=== PATIENT | female | born 1975 | race Caucasian/White ===

== ENCOUNTER 2021-10-17 10:39 | Emergency (ER) | payer OTHER, SELFPAY ==
[2021-10-17 10:59] VITALS: BP 121/77; PULSE 84; RESP 18; TEMP 37.8; O2SAT 100
--- NOTE | 2021-10-17 11:54 | ED.URI ---
HPI - URI/Sore Throat General Chief Complaint: Upper Respiratory Infection Stated Complaint: Sinus Time Seen by Provider: 10/17/21 11:54 Source: patient and RN notes reviewed Mode of arrival: ambulatory Limitations: no limitations History of Present Illness HPI Narrative: 46-year-old female presents with concern for sore throat, sinus pain and pressure, postnasal drainage, swollen lymph nodes, sinus burning that started on Sunday. Reports she has not been vaccinated for Covid. She took 1 negative Covid rapid test at home yesterday. She denies known sick contacts. MD elicited complaint: sore throat Related Data Allergies Allergy/AdvReac Type Severity Reaction Status Date / Time No Known Allergies Allergy Verified 10/17/21 11:06 Review of Systems Review of Systems: CONSTITUTIONAL: Reports malaise. Denies chills, sweats, or fever. EYES: Denies visual changes, redness, or discharge. ENT: Reports rhinorrhea, congestion, sinus pain, ear pressure and sore throat. CARDIOVASCULAR: Denies chest pain, palpitations, or edema. RESPIRATORY: Reports occasional cough. Denies dyspnea. GASTROINTESTINAL: Denies abdominal pain, nausea, vomiting, diarrhea SKIN: Denies rash or itching. MUSCULOSKELETAL: Denies myalgia. NEUROLOGIC: Reports headache. All systems reviewed & are unremarkable except as noted in HPI and below PMFSH Comments At time of signature, agree with nursing past medical, surgical, social and family history. There is no relevant family history pertinent to the presenting complaint Exam Narrative: GENERAL: Well-appearing, well-nourished, and in no acute distress. HEAD: Normocephalic EYES: PERRLA, conjunctivae clear ENT: Nares clear, turbinates edematous and erythematous, clear discharge. Mucous membranes moist. TM pearly nunn with dull light reflex bilaterally; no tragal tenderness. Oropharynx erythematous without lesions. Tonsils not enlarged and without exudate, no drooling, no hoarseness, no trismus, uvula midline. NECK: Supple. No lymphadenopathy CHEST: Clear to auscultation, breath sounds equal. No wheezing, rhonchi, rales, or stridor. No respiratory distress, speaks in full sentences. HEART: Regular rate and rhythm. No murmur heard. SKIN: Warm, dry, no rash. NEURO: Alert and oriented x3. PSYCH: Normal mood and affect Course Course Emergency Course: Patient is aware of diagnosis, understands and agrees to treatment plan. Anticipatory guidance given. Patient agrees to follow-up as directed and is aware of reasons to seek care at the emergency department. Portions of this record may have been created with voice recognition software Vital Signs Vital signs: Vital Signs Temperature 100.1 F H 10/17/21 10:59 Pulse Rate 84 10/17/21 10:59 Respiratory Rate 18 10/17/21 10:59 Blood Pressure 121/77 10/17/21 10:59 Pulse Oximetry 100 10/17/21 10:59 Temperature 100.1 F H 10/17/21 10:59 Pulse Rate 84 10/17/21 10:59 Respiratory Rate 18 10/17/21 10:59 Blood Pressure 121/77 10/17/21 10:59 Pulse Oximetry 100 10/17/21 10:59 Reviewed. MDM - URI/Sore Throat MDM Narrative Medical decision making narrative: Differential diagnosis considered: Blue virus, strep pharyngitis, allergic rhinitis, upper respiratory tract infection, sinusitis, rhinosinusitis, nasopharyngitis. viral pharyngitis, otitis media, otitis externa, pneumonia, bronchitis, viral cough syndrome, viral syndrome, and influenza. Exam findings show no acute concerns or changes; patient is non-toxic appearing and is in no distress. Patient is appropriate for outpatient treatment and follow-up. Lab Data Attestation: I reviewed the patient's lab results. Labs: Influenza A Screen Negative Reference Range: Negative Influenza B Screen Negative Reference Range: Negative Strep Screen Presumptive Negative
== END 2021-10-17 12:15 | disposition home or self-care (01) ==
PROVIDERS: Emergency Provider Nurse Practitioner; PCP Internal Medicine
DX: J06.9 Acute upper respiratory infection, unspecified (principal); Z20.822 Contact with and (suspected) exposure to COVID-19
CPT/HCPCS: 87081; 87426; 87804; 87880; 99213; C9803; G0463

== ENCOUNTER 2021-11-20 12:36 | Emergency (ER) | payer OTHER, SELFPAY ==
[2021-11-20 12:49] VITALS: BP 124/76; PULSE 99; RESP 16; TEMP 36.3; O2SAT 99
--- NOTE | 2021-11-20 14:40 | ED.URI ---
HPI - URI/Sore Throat General Chief Complaint: Upper Respiratory Infection Stated Complaint: fever chest tighness / congestion Time Seen by Provider: 11/20/21 14:40 Source: patient, RN notes reviewed and old records reviewed Mode of arrival: ambulatory Limitations: no limitations History of Present Illness HPI Narrative: 46-year-old female who presents to [facility] with complaints of fever, cough with some chest tightness, nasal drainage and congestion which started on Sunday. Patient states that she noted some shortness of breath with activity on . Patient reports that she has not had COVID of Flu vaccinations and states history of bronchitis. Patient has not taken any OTC medications for her symptoms. Patient has even and nonlabored respirations, no tachypnea noted SAO2 99% on room air. MD elicited complaint: fever, cough, rhinorrhea, nasal congestion and other (chest tightness with cough) Related Data Allergies Allergy/AdvReac Type Severity Reaction Status Date / Time No Known Allergies Allergy Verified 10/17/21 11:06 Review of Systems Review of Systems: CONSTITUTIONAL: Positive for fever,no reported chills, or sweats. EYES: Denies visual changes, redness, or discharge. ENT: Positive for rhinorrhea, congestion,no sore throat, or otalgia. CARDIOVASCULAR:Positive for chest tightness with cough, no palpitations, or edema, no radiation of pain or nausea. RESPIRATORY: Positive cough or dyspnea. GASTROINTESTINAL: Denies abdominal pain, nausea, vomiting, or diarrhea. GENITOURINARY: Denies dysuria or hematuria. SKIN: Denies rash or itching. MUSCULOSKELETAL: Denies back pain, joint pain, or myalgia. NEUROLOGIC: Denies headache, numbness, or weakness. PSYCHIATRIC: Denies anxiety or depression. All systems reviewed & are unremarkable except as noted in HPI and below PMFSH Past Medical History Medical History (Updated 11/21/21 @ 17:22 by Smiley Villafana NP) Bronchitis Surgical History Surgical History (Updated 11/21/21 @ 17:23 by Smilye Villafana NP) H/O breast biopsy H/O dilation and curettage Social History Social History (Updated 11/21/21 @ 17:27 by Smiley Villafana NP) Smoking status: Never smoker Alcohol intake: current Alcohol use details: social Substance use: never Living arrangements: with family Gender identity (if verbalized by the patient): Female Comments My comments Exam Narrative: GENERAL: Illl-appearing, well-nourished, and in no acute distress. HEAD: Normocephalic, atraumatic. EYES: PERRLA and EOMI. ENT: Nares patent with clear rhinorrhea no epistaxis. Mucous membranes moist.TM's normal with good light reflex, throat pink with no lesions or exudates, no tonsil enlargement some post nasal drainage. NECK: Supple.no lymphadenopathy CHEST: Clear to auscultation. No respiratory distress.dry cough noted SAO2 99% on room air HEART: Regular rate and rhythm. No murmur heard. Normal peripheral pulses. chest tightness with cough ABDOMEN: Soft, nontender, nondistended, normal active bowel sounds. EXTREMITIES: Normal range of motion. No edema. SKIN: Warm, dry, no rash. NEURO: No focal deficits. Alert and oriented x3. Course Course Level of Care: Express Care Visit Vital Signs Vital signs: Vital Signs Temperature 36.3 C L 11/20/21 12:49 Pulse Rate 99 11/20/21 12:49 Respiratory Rate 16 11/20/21 12:49 Blood Pressure 124/76 11/20/21 12:49 Pulse Oximetry 99 11/20/21 12:49 Temperature 36.3 C L 11/20/21 12:49 Pulse Rate 99 11/20/21 12:49 Respiratory Rate 16 11/20/21 12:49 Blood Pressure 124/76 11/20/21 12:49 Pulse Oximetry 99 11/20/21 12:49 MDM - URI/Sore Throat Differential Diagnosis Differential diagnosis: Likely upper respiratory infection, sinusitis, viral infection, bronchitis and other (COVID) Medical Records Attestation: I reviewed the patient's medical records. Lab Data Attestation: I reviewed the patient's lab results. Lab result
== END 2021-11-20 15:00 | disposition home or self-care (01) ==
PROVIDERS: Emergency Provider Registered Nurse; PCP Internal Medicine
DX: U07.1 COVID-19 (principal)
CPT/HCPCS: 87426; 87804; 99213; C9803; G0463

== ENCOUNTER 2021-11-27 09:13 | Emergency (ER) | payer OTHER, SELFPAY ==
--- NOTE | ~2021-11-27 | XR_ITS ---
EXAMINATION: XR chest 2V 11/27/2021 09:49 INDICATION: Post Covid cough PROCEDURE: 2 view chest COMPARISON: No prior studies for comparison. FINDINGS: The lungs are clear. The cardiomediastinal silhouette is within normal limits. There are no pleural effusions. There is no pneumothorax suspected. IMPRESSION: 1: NO ACUTE CARDIOPULMONARY DISEASE. Reviewed, dictated and finalized at location [employer]
[2021-11-27 09:29] VITALS: BP 134/74; PULSE 95; RESP 16; TEMP 37.4; O2SAT 99
--- NOTE | 2021-11-27 10:08 | ED.URI ---
HPI - URI/Sore Throat General Chief Complaint: Upper Respiratory Infection Stated Complaint: cough Time Seen by Provider: 11/27/21 09:58 Source: patient and RN notes reviewed Mode of arrival: ambulatory Limitations: no limitations History of Present Illness HPI Narrative: Patient presents today complaining of coughing episode with shortness of breath last night. Cough has been nonproductive with a dry scratchy throat. Patient was diagnosed 1 week ago with COVID-19 here at [facility]. She is also been taking Mucinex and Tylenol. States she had a fever last night up to 99.9. She has not been vaccinated against COVID-19. MD elicited complaint: cough Related Data Allergies Allergy/AdvReac Type Severity Reaction Status Date / Time No Known Allergies Allergy Verified 11/27/21 09:47 Review of Systems Review of Systems: CONSTITUTIONAL: Denies body aches, fever, chills, or sweats. EYES: Denies visual changes, redness, or discharge. ENT: Denies rhinorrhea, congestion, sore throat, or otalgia.+ Scratchy throat CARDIOVASCULAR: Denies chest pain, palpitations, or edema. RESPIRATORY:+ Cough, shortness of breath GASTROINTESTINAL: Denies abdominal pain, nausea, vomiting, or diarrhea. GENITOURINARY: Denies dysuria or hematuria. SKIN: Denies rash, itching, or wounds. MUSCULOSKELETAL: Denies back pain, joint pain, or myalgia. NEUROLOGIC: Denies headache, numbness, tingling, or weakness. PSYCH: Denies depression or anxiety. PMFSH Past Medical History Medical History Bronchitis Surgical History Surgical History H/O breast biopsy H/O dilation and curettage Social History Social History Smoking status: Never smoker Alcohol intake: current Alcohol use details: social Substance use: never Gender identity (if verbalized by the patient): Female Comments At time of signature, I have reviewed and agree with nursing past medical, surgical, social and family history unless otherwise noted. Please see nursing chart for further information. There is no relevant family history pertinent to the presenting complaint Exam Narrative: GENERAL: Well-appearing, well-nourished, and in no acute distress. HEAD: Normocephalic, atraumatic. EYES: EOMI. No redness or drainage. Conjunctivae normal. ENT: Mucous membranes pink and moist. Nares clear. No rhinorrhea. TMs normal bilaterally. Throat normal. Uvula midline. NECK: Normal AROM. Supple. No lymphadenopathy. CHEST: No respiratory distress. Clear to auscultation. HEART: Regular rate and rhythm. No murmur appreciated. Normal peripheral pulses. EXTREMITIES: Normal range of motion. No edema. SKIN: Warm, dry, no rash. Capillary refill normal. Normal skin turgor. NEURO: No focal deficits. Alert and oriented x3. Gait steady. PSYCH: Normal affect. No signs of depression or anxiety. Course Course Level of Care: Express Care Visit Vital Signs Vital signs: Vital Signs Temperature 99.3 F 11/27/21 09:29 Pulse Rate 95 11/27/21 09:29 Respiratory Rate 16 11/27/21 09:29 Blood Pressure 134/74 11/27/21 09:29 Pulse Oximetry 99 11/27/21 09:29 Temperature 99.3 F 11/27/21 09:29 Pulse Rate 95 11/27/21 09:29 Respiratory Rate 16 11/27/21 09:29 Blood Pressure 134/74 11/27/21 09:29 Pulse Oximetry 99 11/27/21 09:29 Reviewed. Pt has been instructed to follow up with her PCP regarding her elevated blood pressure today. MDM - URI/Sore Throat Differential Diagnosis Differential diagnosis: Likely upper respiratory infection, bronchitis and other (Pneumonia) Imaging Data Radiologist's impression: ITS Impressions Chest X-Ray 11/27/21 09:53 IMPRESSION: 1: NO ACUTE CARDIOPULMONARY DISEASE. Critical Care Time Critical Care Time Critical Care Time: No Disch
== END 2021-11-27 10:15 | disposition home or self-care (01) ==
PROVIDERS: Emergency Provider Nurse Practitioner; PCP Internal Medicine
DX: U07.1 COVID-19 (principal)
CPT/HCPCS: 71046; 99213; G0463

== ENCOUNTER 2022-05-19 09:28 | Emergency (ER) | payer OTHER, SELFPAY ==
[2022-05-19 09:32] VITALS: BP 134/74; PULSE 62; RESP 18; TEMP 37; O2SAT 99
--- NOTE | 2022-05-19 09:35 | ED.URI ---
HPI - URI/Sore Throat General Chief Complaint: Upper Respiratory Infection Stated Complaint: cough and congestion Time Seen by Provider: 05/19/22 09:29 Source: patient and RN notes reviewed History of Present Illness HPI Narrative: Patient is a 47-year-old female who presents the urgent care with complaints of cough and congestion. Patient reports of dry cough with tightness upon lying down. Patient states is been ongoing for the last 2 weeks. Patient has been taking Remedios and Sudafed. Denies any ill contacts. States that she did have an COVID test last week. Denies a fever, chills, nausea or vomiting. No other acute complaints. No acute distress noted. Patient aware of the plan of care. Some parts of this dictation were generated by voice recognition software and may contain typographical and/or grammatical inaccuracies. Related Data Home Medications Medication Instructions Recorded Confirmed fexofenadine 60 mg tablet (Remedios mg 05/19/22 Allergy) Allergies Allergy/AdvReac Type Severity Reaction Status Date / Time No Known Allergies Allergy Verified 11/27/21 09:47 Review of Systems Review of Systems: CONSTITUTIONAL: Denies fever, chills, or sweats. EYES: Denies visual changes, redness, or discharge. ENT: Reports of ear pressure, sinus congestion, postnasal drainage CARDIOVASCULAR: Denies chest pain, palpitations, or edema. RESPIRATORY: Reports of dry cough without dyspnea GASTROINTESTINAL: Denies abdominal pain, nausea, vomiting, or diarrhea. GENITOURINARY: Denies dysuria or hematuria. SKIN: Denies rash or itching. MUSCULOSKELETAL: Denies back pain, joint pain, or myalgia. NEUROLOGIC: Denies headache, numbness, or weakness. All other systems reviewed are negative, except as documented in HPI. [facility], [facility] Past Medical History Medical History Bronchitis Surgical History Surgical History H/O breast biopsy H/O dilation and curettage Social History Social History Smoking status: Never smoker Alcohol intake: current Alcohol use details: social Substance use: never Gender identity (if verbalized by the patient): Female Comments At the time of my signature, I reviewed and agree with the nursing past medical, surgical, social, and family history. There is no relevant family history pertinent to the patient complaint. Exam Narrative: GENERAL: This is a well-nourished, well-developed patient, in no apparent distress. HEAD: normocephalic, atraumatic. Frontal sinus tenderness EYES: PERRL. Sclera clear/white. Vision is grossly intact. EARS: External ears normal, auditory canals clear and without drainage, mild bilateral effusions without otitis. TMs normal without perforation. Hearing grossly intact. NOSE: External nose normal with no obvious nasal discharge, nares without redness, there to yellow rhinorrhea THROAT: Mucous membranes moist, posterior pharynx clear. Moderate postnasal drainage NECK: Neck supple, non-tender without lymphadenopathy, masses or thyromegaly. CARDIOVASCULAR: Regular rate and rhythm without murmurs, gallops, or rubs. RESPIRATORY: Dry cough noted on exam with slight crackles to the right upper, cleared with cough. Clear to auscultation. Breath sounds equal bilaterally. No wheezes, rales, or rhonchi. SKIN: warm, intact with no suspicious lesions or rash, good texture and turgor. NEURO: awake, alert, and oriented to person, place and time. There were no obvious focal neurologic abnormalities. EXTREMITIES: No clubbing, cyanosis, or edema. Course Course Level of Care: Express Care Visit Vital Signs Vital signs: Vital Signs Temperature 98.6 F 05/19/22 09:32 Pulse Rate 62 05/19/22 09:32 Respiratory Rate 18 05/19/22 09:32 Blood Pressure 134/74 05/19/22 09:32 Pulse Oximetry 99
== END 2022-05-19 10:03 | disposition home or self-care (01) ==
PROVIDERS: Emergency Provider Nurse Practitioner Family; PCP Internal Medicine
DX: J40 Bronchitis, not specified as acute or chronic (principal)
CPT/HCPCS: 99213; G0463

== ENCOUNTER 2023-07-09 18:47 | Emergency (ER) | payer OTHER, SELFPAY ==
[2023-07-09 18:54] VITALS: BP 137/76; PULSE 90; RESP 20; TEMP 36.5; O2SAT 100
--- NOTE | 2023-07-09 19:05 | ED.SKABFB ---
HPI - Skin/Abscess/Foreign Bdy General Chief complaint: Skin/Abscess/Foreign Body Stated complaint: sting on right thigh Time Seen by Provider: 07/09/23 19:04 Source: patient and RN notes reviewed Mode of arrival: ambulatory Limitations: no limitations History of Present Illness HPI narrative: 48-year-old female presents with concern for wasp sting to her right thigh. Reports she was stung by a wasp yesterday. Reports she has taken Benadryl. Reports today the center of the red raised area has become so hard and tender. She denies swollen lips, swollen tongue, trouble breathing. MD complaint: insect bite/sting Related Data Allergies Allergy/AdvReac Type Severity Reaction Status Date / Time No Known Allergies Allergy Verified 11/27/21 09:47 Review of Systems Review of Systems: CONSTITUTIONAL: Denies malaise, chills, sweats, or fever. EYES: Denies redness, or discharge. ENT: Denies rhinorrhea, congestion, swollen lips, swollen tongue CARDIOVASCULAR: Denies chest pain, palpitations, or edema. RESPIRATORY: Denies cough or dyspnea. GASTROINTESTINAL: Denies abdominal pain, nausea, vomiting SKIN: Reports red swollen sting site on her left thigh with heart tender area MUSCULOSKELETAL: Denies joint pain or myalgia. NEUROLOGIC: Denies headache. All systems reviewed & are unremarkable except as noted in HPI and below PMFSH Past Medical History Medical History Bronchitis Surgical History Surgical History H/O breast biopsy H/O dilation and curettage Social History Social History Smoking status: Never smoker Alcohol intake: current Alcohol use details: social Substance use: never Living arrangements: with family Gender identity (if verbalized by the patient): Female Comments At time of signature, agree with nursing past medical, surgical, social and family history. There is no relevant family history pertinent to the presenting complaint Exam Narrative: GENERAL: Well-appearing, well-nourished, and in no acute distress. HEAD: Normocephalic, atraumatic. EYES: PERRLA, conjunctivae clear, and EOMI. ENT: Mucous membranes moist. Oropharynx without edema, erythema or lesions. NECK: Supple. No lymphadenopathy CHEST: Clear to auscultation. No respiratory distress. HEART: Regular rate and rhythm. SKIN: Warm, dry. Approximately 25 cm slightly raise area diameter of erythema noted to the right thigh with approximately 10 cm of induration and tenderness without fluctuation NEURO: Alert and oriented x3. PSYCH: Normal mood and affect Course Course Emergency Course: Patient is aware of diagnosis, understands and agrees to treatment plan. Anticipatory guidance given. Patient agrees to follow-up as directed and is aware of reasons to seek care at the emergency department. Portions of this record may have been created with voice recognition software Level of Care: Express Care Visit Vital Signs Vital signs: Vital Signs Temperature 97.7 F 07/09/23 18:54 Pulse Rate 90 07/09/23 18:54 Respiratory Rate 20 07/09/23 18:54 Blood Pressure 137/76 07/09/23 18:54 Pulse Oximetry 100 07/09/23 18:54 Oxygen Delivery Room Air 07/09/23 18:54 Temperature 97.7 F 07/09/23 18:54 Pulse Rate 90 07/09/23 18:54 Respiratory Rate 20 07/09/23 18:54 Blood Pressure 137/76 07/09/23 18:54 Pulse Oximetry 100 07/09/23 18:54 Oxygen Delivery Room Air 07/09/23 18:54 Reviewed. MDM - Skin/Abscess/Foreign Bdy MDM Narrative Medical decision making narrative: Does not appear at this time to be erythema multiforme, bullous, SJS, TEN; no evidence at this time to suggest RMSF, endocarditis or Lyme disease; patient looks well, nontoxic and is tolerating oral intake; no neurologic signs or symptoms; no headache, photophobi
== END 2023-07-09 19:18 | disposition home or self-care (01) ==
PROVIDERS: Emergency Provider Nurse Practitioner
DX: L03.115 Cellulitis of right lower limb (principal); T63.461A Toxic effect of venom of wasps, accidental (unintentional), initial encounter
CPT/HCPCS: 99213; G0463

== ENCOUNTER 2024-03-31 00:31 | Day surgery (SDC) | payer OTHER, SELFPAY ==
[2024-03-24 14:40] VITALS: BMI 31.6
--- NOTE | 2024-03-24 14:41 | PC.NURSE ---
Addendum entered by Miguel Carlisle RN 03/25/24 12:58: Stop all vitamins and fish oil on 03-28-2024. Original Note: Report to the Outpatient Waiting Room, entrance under the green pavilion located off [facility], at time _1000_ on date _[id number]_. Planned Procedure Time: _1200_. Time changes happen often and if your time is changed the preop area will call you the afternoon before. - You and your visitor will be asked to self-screen and do not enter if you have any COVID symptoms. - A mask is optional within the hospital at this time. Patients may have clear liquids (water, carbonated beverages, clear teas, apple juice) until 3 hours prior to surgery with a maximum of 20 ounces. - No food from midnight until time of surgery Take the following medications with a SIP of water the morning of surgery: DO NOT STOP ANY OF YOUR OTHER PRESCRIPTION MEDICATIONS PRIOR TO SURGERY ?EXCEPT THE FOLLOWING Medications to discontinue per physician Date to take last dose Please no make-up, nail mongolian, hairspray, perfume, deodorant, or body powder the day of surgery. No jewelry (including any body piercings) or valuables the day of surgery, leave them at home. Please take a shower or bath the night before, or the morning of, surgery with an antibacterial soap. Wear comfortable, loose fitting clothing. - Jewelry must be removed prior to entering the operating room. Rings and piercings that are not removed may be cut off. - The hospital will not accept responsibility for valuables. - Please leave all valuables, including medications, at home the day of surgery. If you are going home after surgery, a licensed limb driver must drive you home. - NO public transportation without another adult if you receive anesthesia. - We recommend that an adult stay with you for 24 hours following discharge. - We also recommend that you do not drive, make important decision, drink alcoholic beverages, or take any drugs that were not prescribed by your health care provider for at least 24 hours after your discharge time. Follow any additional instructions given to you from your surgeon. If you or anyone in your household have experienced Covid symptoms in the past week, please notify your surgeon or the nurse liaison at the phone number below for possible testing. Telephone instructions given to __Dahlia___and asked if any additional questions and then verbalized understanding. Patient advised to call surgeon office or pre surgery nurse liaison [phone] if any additional questions.
--- NOTE | 2024-03-31 07:25 | WPDHPUPDATE1 ---
History and Physical Update Update Date/Time: 03/31/24 07:25 History and Physical has been reviewed, including an updated exam of the patient. There are NO changes in the patient's condition. Risks, benefits, and alternatives have been discussed and questions answered. Patient agrees to proceed with procedure.
--- NOTE | 2024-03-31 07:26 | P.HP_ITS ---
History of Present Illness History of Present Illness Consent: Risks, benefits, and alternatives have been discussed and questions answered. Patient agrees to proceed with procedure. Chief complaint: menorrhagia, fibroids Narrative: Martina James is a 49 year old female with a change in her cycles. They have become more irregular but also heavy. She was passing golf ball size clots. Pelvic ultrasound reveals fibroids some of which are submucosal. It was recommended to undergo D&C hysteroscopy with possible myomectomy. Risks of infection, bleeding, perforation, and possible pathology were reviewed. In addition the risk of fluid imbalance and inability to remove the entire fibroid were discussed. Patient voices understanding and agrees to proceed. Review of Systems Review of Systems: not repeated day of surgery; patient states no changes in status PMFSH Past Medical History Medical History (Updated 03/31/24 @ 07:29 by Mariaelena Magallon MD) (normal spontaneous vaginal delivery) x3 Surgical History Surgical History (Updated 03/31/24 @ 07:28 by Mariaelena Magallon MD) H/O breast biopsy Bilateral benign H/O dilation and curettage 1996 for spontaneous Social History Social History Smoking status: Never smoker Alcohol intake: current Alcohol use details: social Substance use: never Living arrangements: with family Gender identity (if verbalized by the patient): Female Spiritual care concerns: No Meds Home Medications and Allergies Home Medications Medication Instructions Recorded Confirmed Type escitalopram oxalate 5 mg tablet 5 mg PO HS 03/24/24 03/24/24 History multivitamin 1 tablet PO DAILY 03/24/24 03/24/24 History omega 2-hqn-zgu-fish oil 1,200 mg 1 cap PO DAILY 03/24/24 03/24/24 History (144 mg-216 mg) capsule (Fish Oil) vitamin C 90 mg-zinc gluconate 15 1 angie PO DAILY 03/24/24 03/24/24 History mg-herbal complex no. 325 lozenges Allergies Allergy/AdvReac Type Severity Reaction Status Date / Time No Known Allergies Allergy Verified 03/24/24 14:31 Exam Const: General: healthy appearing and alert Orientation/consciousness: patient oriented x3 Resp: Effort & Inspection: normal respiratory effort : External Female Exam: normal external appearance Speculum Exam - Vagi na: normal appearance of the vagina and normal vaginal discharge Speculum Exam - Cervix: normal appearance of the cervix Bimanual exam- vagina & u terus: uterine size normal and consistency normal Bimanual Exam- Adnexa, other: normal adnexae and No adnexal tenderness Neuro: General: patient oriented x3 Assessment and Plan Assessment and plan (1) Menorrhagia: Code(s): N92.0 - Excessive and frequent menstruation with regular cycle Status: Acute Assessment and Plan: plan to proceed with D&C hysteroscopy and possible myomectomy
[2024-03-31 10:30] VITALS: BP 127/62; PULSE 62; RESP 14; TEMP 36.3; O2SAT 100
[2024-03-31] MEDS: LACTATED RINGERS 1,000 ML 30 ML IV CONT (10:30)
[2024-03-31] MEDS: ACETAMINOPHEN 500 MG TABLET 1000 MG PO (10:30)
--- NOTE | 2024-03-31 10:35 | P.PNAN_ITS ---
Anes - Initial Pre Proc Eval Procedure: Operation Date: 03/31/24 12:00 Proposed Procedures p Hysteroscopy Dilation and Curettage with Myosure - Mariaelena Magallon MD Date/Time: 03/31/24 10:35 Surgeon: Mariaelena Magallon MD Pre Op Diagnosis: menorrhagia, fibroids Patient Data Age: 49 Gender: F Height: 1.65 m Weight: 86.4 kg Allergies Allergy/AdvReac Type Severity Reaction Status Date / Time No Known Allergies Allergy Verified 03/24/24 14:31 Home Medications Medication Instructions Recorded Confirmed Type escitalopram oxalate 5 mg tablet 5 mg PO HS 03/24/24 03/24/24 History multivitamin 1 tablet PO DAILY 03/24/24 03/24/24 History omega 9-wln-nzp-fish oil 1,200 mg 1 cap PO DAILY 03/24/24 03/24/24 History (144 mg-216 mg) capsule (Fish Oil) vitamin C 90 mg-zinc gluconate 15 1 angie PO DAILY 03/24/24 03/24/24 History mg-herbal complex no. 325 lozenges Patient hx anesthesia problems: none Family hx anesthesia problems: none Results Review: All pre-operative results and documents have been reviewed as part of the pre- operative evaluation. PMFSH Past Medical History Medical History (normal spontaneous vaginal delivery) x3 Surgical History Surgical History H/O breast biopsy Bilateral benign H/O dilation and curettage 1996 for spontaneous Social History Social History Smoking status: Never smoker Alcohol intake: current Alcohol use details: social Substance use: never Living arrangements: with family Gender identity (if verbalized by the patient): Female Spiritual care concerns: No Anes - Eval Final PreProcedure Day of Procedure 03/31/24 10:35 Patient weight: overweight Heart: regular rate and rhythm Lungs: clear to auscultation Airway: Mallampati scale class II Neurological: alert and oriented Last oral intake: >/= 8 hours ASA classification: II Emergent: no Anesthetic plan: proceed Anesthesia type and monitoring: general GIVS Results Review: All pre-operative results and documents have been reviewed as part of the pre- operative evaluation. Pt active, works out several days per week, no cp or sob. Informed Consent: The patient's anesthetic plan and its attendant risks and benefits were discussed with the patient/family/POA. Questions were solicited and answers provided to the satisfaction of the patient/family/POA.
[2024-03-31] MEDS: KETOROLAC 30 MG/ML VIAL (*BKC) IV PUSH (11:15)
[2024-03-31 11:34] VITALS: BP 104/62; PULSE 53; RESP 16; O2SAT 96
--- NOTE | 2024-03-31 11:34 | P.OP_ITS ---
Procedure Note - Detailed Date of Procedure 03/31/24 Pre-op Diagnosis menorrhagia, fibroids Post-op Diagnosis Same Procedure Performed hysteroscopic myomectomy with D&C Surgeon Mariaelena Magallon MD Anesthesia MAC and Local Findings uterus sounds to 9cm large fibroid filling the entire cavity arising from the right mid fundus normal-appearing endometrium after fibroid is removed Description of Procedure The patient is taken to the operating room and placed under anesthesia in the dorsal lithotomy position. She was prepped and draped in the usual sterile fashion. [place] speculum was placed in the vagina the cervix grasped on the anterior lip with a tenaculum. The cervix is injected in each quadrant with 1% lidocaine. The uterus is sounded to 9cm. The cervix is serially dilated to a 6 Hegar. The large Aveeta hysteroscope was placed and with the above-stated findings the large resection device is placed. Under direct visualization the fibroid is removed until it was smooth with the endometrium. The field was very clear until almost the end of the case. There was some blood near the end of the resection. Irrigating the bladder and through the hysteroscope allowed good visualization of the endometrium and the remainder of the endometrium appeared normal. The hysteroscope was then removed and the sharp OO curette was used to curette the endometrium until a good uterine cry is noted in all areas. All instruments are removed. Sponge, needle, and instrument counts are correct per the OR staff. There is a 700cc fluid deficit at the end of the case. Before printing the pictures the staff suction the discarded fluid out of the of the device and therefore the printed number is incorrect. the patient is awakened from anesthesia and taken to recovery in stable condition. Estimated Blood Loss 50 Drains No Packing No Pathology Yes ( Endometrial shavings and curettings) Complications No immediate complications Condition Stable Disposition PACU
[2024-03-31 12:00] VITALS: BP 144/71; PULSE 51
[2024-03-31 12:30] VITALS: BP 133/64; PULSE 53; RESP 16
== END 2024-03-31 12:30 | disposition home or self-care (01) ==
PROVIDERS: PCP Family Medicine; Visit Provider Obstetrics & Gynecology Gynecology
PROC: 0U5B8ZZ Destruction of Endometrium, Via Natural or Artificial Opening Endoscopic (ICD-10-PCS; CPT 58563; principal; 2024-03-31 12:00)
DX: N92.0 Excessive and frequent menstruation with regular cycle (principal); D25.9 Leiomyoma of uterus, unspecified; Z98.890 Other specified postprocedural states
CPT/HCPCS: 58561; 88305; A9270; J1885; J2250; J2405; J2704; J3010; J7120

== ENCOUNTER 2025-05-31 20:25 | Emergency (ER) | payer OTHER, SELFPAY ==
[2025-05-31] VITALS (12 sets, daily range): BP systolic 115–144; BP diastolic 61–92; PULSE 60–86; RESP 12–29; TEMP 36.6; O2SAT 98–100
--- OUTSIDE RECORDS SUMMARY | 2025-05-31 20:27 | XMS_ITS | Referral Summary ---
Author Organization [facility] Address [address] [place] [id number] Care Team Providers Care Managed Care Manager Name Role Phone Renetta Valladares MD Primary Care Provide r Mariaelena Magallon MD Unavailable [phone] Encounters Date Type Department Care Team Description 04/13/2025 8:22 AM CDT - 04/13/2025 11:05 AM CDT Emergency [facility] [address] [place] [address] Glendy Wilson MD Urinary retention (Primary Dx) Discharge Disposition: Discharge to home or self care 03/02/2025 1:30 PM CDT Office Visit [facility] [place] [address] [facility] [address] [place] [id number] Renetta Valladares MD Cough, unspecified type (Primary Dx); Class 1 obesity due to excess calories with serious comorbidity and body mass index (BMI) of 33.0 to 33.9 in adult; Upper respiratory tract infection, unspecified type from Last 3 Months Allergies Active Allergy Reactions Criticality Noted Date Comments Clarithromycin Medications ibuprofen (ibuprofen) 200 mg tab/cap Take by mouth every 6 (six) hours as needed for pain Active multivitamin capsule Take 1 capsule by mouth daily Active omega-3 fatty acids-fish oil 300-1,000 mg capsule Take 2 capsules (2 g total) by mouth daily Active cetirizine (ZyrTEC) 10 mg tablet ZyrTEC Allergy 10 MG Oral Tablet QTY: 0 not specified Days: 0 Refills: 0 Written: 05/08/13 Patient Instructions: 3 Active fluticasone propionate (FLONASE) 50 mcg/actuation nasal spray Fluticasone Propionate 50 MCG/ACT Nasal Suspension QTY: 16 not specified Days: 4 Refills: 0 Written: 12/26/12 Patient Instructions: 3 Active vit C/Zn gluc/herbal no.325 (ELDERBERRY ZINC VIT C MM) Apply to mouth Active rizatriptan (MAXALT) 10 mg tabletIndicatio ns:Migraine TAKE 1 TABLET (10 MG TOTAL) BY MOUTH ONCE NEEDED FOR MIGRAINE MAY REPEAT IN 2 HOURS IF UNRESOLVED. DO NOT EXCEED 30 MG IN 24 HOURS. 9 tablet 4 Active valACYclovir (Valtrex) 1 gram tabletIndicatio ns:Recurrent cold sores Take 2 pills twice daily for one prn for cold sores 10 tablet 4 Active tamsulosin (FLOMAX) 0.4 mg extended release capsule Take 1 capsule (0.4 mg total) by mouth daily 10 capsule 5 Active Active Problems Problem Noted Date Diagnosed Date Upper respiratory tract infection 03/02/2025 Assessment & Plan (03/02/2025 1:32 PM CDT): New concern Not at goal Covid, flu and rsv negative augmentin sent to the pharmacy Recommend fluids, rest, humidification, mucinex if needed. She was instructed to call back if symptoms do not improved in a week, or if worsening ones arise. Education provided. Acute pain of both knees 12/09/2024 Assessment & Plan (12/09/2024 4:36 PM HUMAN CAPITAL MANAGER): New concern Likely arthritis flaring up Recommend aleve prn Declines xrays at this time Had xray and mri of the right knee in the past She will call back if she would like some physical therapy F/u prn Colon wall thickening 07/23/2024 Personal history of colonic polyps 07/23/2024 Encounter for screening colonoscopy 07/23/2024 Decreased urine output 2024 Urinary retention 2024 Assessment & Plan (2024 9:20 AM HUMAN CAPITAL MANAGER): New concern Not at goal Poct dipstick showed small amounts of blood which is expected as she is finishing up her menstrual cycle but no sign of infection Will get urinalysis and microscopy Post void bladder scan 176ml left over Referral to urology Lump of skin of back 12/03/2023 Assessment & Plan (12/03/2023 4:32 PM HUMAN CAPITAL MANAGER): Likely lipoma No opening to suggest a cyst and no discoloration Offered US for confirmation but she would like to hold off on this and continue to monitor for now Right hip pain 12/03/2023 Assessment & Plan (12/03/2023 4:34 PM HUMAN CAPITAL MANAGER): Chronic No improvement Tylenol and heat Referral to physical therapy F/u if no improvement Migraine without aura and wi thout status migrainosus, not intractable 10/10/2023 Assessment & Plan (12/09/2024 12:31 PM HUMAN CAPITAL MANAGER): chronic problem continue rizatriptan Follow-up p.r.n. Assessment & Plan (12/03/2023 9:04 AM HUMAN CAPITAL MANAGER): chronic problem continue rizatriptan 10 mg-take 1 tablet by mouth as needed-may repeat in 2 hours if headache has not resolved, do not exceed more than 30 mg in a 24 hour. Patient educated on medication and side effects Continue to monitor Follow-up p.r.n. Assessment & Plan (10/10/2023 2:42 PM HUMAN CAPITAL MANAGER): Acute on chronic problem-this has been in recession for a while, until recently patient has had 2 migraine headaches poorly controlled with current regimen Ordered rizatriptan 10 mg-take 1 tablet by mouth as needed-may repeat in 2 hours if headache has not resolved, do not exceed more than 30 mg in a 24 hour. Patient educated on medication and side effects Continue to monitor Follow-up with PCP as scheduled-sooner p.r.n. if medication does not seem to control migraines or if unable to tolerate medication Low back pain 09/26/2023 Assessment & Plan (09/26/2023 12:51 PM HUMAN CAPITAL MANAGER): Acute problem- this is a new problem with an onset 2 weeks ago, worsening over the last 2 days with an increase in muscle spasm to right low back Ordered urine dip POC- positive for moderate blood- this is more than likely related to patient's menstrual cycle at this time versus UTI or kidney infection Negative for flank pain with palpation or percussion Recommend OTC Tylenol- use as directed Recommend avoiding the ibuprofen at this time due to her irregular menses and her heavy bleeding due to side effects of ibuprofen. Continue to monitor Encouraged to continue exercising as tolerated Muscle spasm of back 09/26/2023 Assessment & Plan (12/03/2023 4:31 PM HUMAN CAPITAL MANAGER): Chronic Stable Refer to physical therapy Can take the muscle relaxer as needed but will not do a refill F/u if no improvement with PT. Will consider referral to pain management at that time Assessment & Plan (10/10/2023 2:43 PM HUMAN CAPITAL MANAGER): Acute problem- stable, but not at goal-patient has not started this medication yet due to starting a 2nd new medication. Continue cyclobenzaprine 10 mg- take 1 tablet t.I.d. p.r.n. Recommend alternating ice and heat therapy at 20 minute intervals Encouraged to continue with exercise as tolerated Recommend avoiding sitting or standing for long periods of time Continue to monitor Follow-up as scheduled sooner p.r.n. Assessment & Plan (09/26/2023 12:46 PM HUMAN CAPITAL MANAGER): Acute problem- this is a new problem with onset 2 weeks ago and worsening over the last 2 days Ordered cyclobenzaprine 10 mg- take 1 tablet t.I.d. p.r.n. Recommend alternating ice and heat therapy at 20 minute intervals Encouraged to continue with exercise as tolerated Recommend avoiding sitting or standing for long periods of time Ordered urine dip POC- positive for moderate blood, however patient has recently started her menses so this is more than likely related to menstrual cycle versus your urinary tract infection or kidney infection Continue to monitor Follow-up as scheduled sooner p.r.n. 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 Patient reiterated no suicidal thoughts at this time; take medication as directed; contact 911 and go to the ER if becomes suicidal; discussed side effects of medication with patient; encouraged healthy diet and exericise; encouraged patient to see a counselor Assessment & Plan (12/03/2023 9:01 AM HUMAN CAPITAL MANAGER): Acute problem- improving Continue Escitalopram 5 mg- take 1 tablet daily Follow-up as scheduled-sooner p.r.n. Patient reiterated no suicidal thoughts at this time; take medication as directed; contact 911 and go to the ER if becomes suicidal; discussed side effects of medication with patient; encouraged healthy diet and exericise; encouraged patient to see a counselor Assessment & Plan (10/10/2023 2:43 PM HUMAN CAPITAL MANAGER): Acute problem- improving Continue Escitalopram 5 mg- take 1 tablet daily-refills sent this visit Patient educated on medication and side effects Follow-up as scheduled-sooner p.r.n. Patient reiterated no suicidal thoughts at this time; take medication as directed; contact 911 and go to the ER if becomes suicidal; discussed side effects of medication with patient; encouraged healthy diet and exericise; encouraged patient to see a counselor Assessment & Plan (09/26/2023 12:48 PM HUMAN CAPITAL MANAGER): Acute problem- this is a new problem- this is more than likely related to patient's perimenopause Versus generalized anxiety disorder. Will try Escitalopram 5 mg- take 1 tablet daily Patient educated on medication and side effects Encouraged to call and schedule an appointment to be seen with OBGYN Follow-up in 2 weeks to be re-evaluated for mood swings and medication efficacy Patient reiterated no suicidal thoughts at this time; take medication as directed; contact 911 and go to the ER if becomes suicidal; discussed side effects of medication with patient; encouraged healthy diet and exericise; encouraged patient to see a counselor Wasp sting 07/10/2023 Assessment & Plan (07/10/2023 5:46 PM CDT): New Possible superimposed cellulitis Continue antibiotics prescribed by [facility] Add prednisone 40mg daily to reduce inflammation F/u in 1 week. If no improvement will try alternative antibiotic Menorrhagia with regular cycle 04/27/2023 Assessment & Plan (09/26/2023 12:49 PM HUMAN CAPITAL MANAGER): Acute problem- patient is following OBGYN Encouraged to follow-up with OBGYN as scheduled- sooner p.r.n. Continue current medications as directed by OBGYN Continue to monitor Chronic pain of right knee 11/27/2022 Assessment & Plan (11/27/2022 4:38 PM HUMAN CAPITAL MANAGER): Xray showed arthritis No improvement with physical therapy or nsaids Mri of right knee and referral to ortho Encounter for wellness examination 11/26/2022 Assessment & Plan (12/09/2024 3:17 PM HUMAN CAPITAL MANAGER): Labs pending Flu declines Colonoscopy up to date, due 2030 Pap smear follows with ob Mammo follows with ob F/u in 1 year for annual Assessment & Plan (12/03/2023 9:06 AM HUMAN CAPITAL MANAGER): Ordered CBC, cmp, lipid, hgb a1c, urinalysis Flu declines Colonoscopy up to date Pap smear follows with ob Mammo follows with ob F/u in 1 year for annual Assessment & Plan (11/27/2022 4:00 PM HUMAN CAPITAL MANAGER): Ordered CBC, cmp, lipid, hgb a1c, hep c, TSH w/ reflex to t4 Flu declines Colonoscopy referral placed Pap smear follows with ob Mammo follows with ob F/u in 1 year for annual Atopic rhinitis 04/04/2014 Skin benign neoplasm 02/26/2013 Assessment & Plan (11/27/2022 3:54 PM HUMAN CAPITAL MANAGER): Stable Continue to monitor Herpes simplex virus (HSV) infection 02/26/2013 Assessment & Plan (11/27/2022 3:54 PM HUMAN CAPITAL MANAGER): Stable / clinically quiescent. Will continue to monitor. Continue valtrex as needed Skin neoplasm 02/26/2013 Resolved Problems Problem Noted Date Diagnosed Date Resolved Date Class 1 obesity due to exces s calories with serious comorbidity and body mass index (BMI) of 33.0 to 33.9 in adult 03/02/2025 03/02/2025 Migraine 02/05/2013 10/10/2023 Overview (02/23/2017): Migraine Immunizations Immunization Administration Dates Next Due Influenza, Unspecified 12/09/2024(Deferr ed: Patient Refused),09/07/2024(Deferred: Patient Refused),2024(Deferred: Patient Refused),09/07/2023(Deferred: Patient Refused) Td, adsorbed 03/22/2018 Tdap 05/24/2007 Social History Tobacco Use Types Packs/Day Years Used Date Smoking Tobacco: Never Passive Smoke Exposure: Never Smokeless Tobacco: Never Tobacco Cessation:Counseling Given: Not Answered Alcohol Use Standard Drinks/Week Comments Yes 0 (1 standard drink = 0.6 oz pur e alcohol) AUDIT-C Answer Date Recorded Q1: How often do you have a drink containing alc ohol? Monthly or less 12/09/2024 Q2: How many drinks containi ng alcohol do you have on a typical day when you are drinking? 3 or 4 12/09/2024 Q3: How often do you have si x or more drinks on one occasion? Less than monthly 12/09/2024 PHQ-2 Answer Date Recorded PHQ-2 Total Score (If total score is 3 or more points, staff should administer the PHQ-9) 0 03/02/2025 Personal Safety Answer Date Recorded Have you ever been in or are you currently in a harmful physical or emotional relationship or is someone making you feel afraid or unsafe? Denies 04/13/2025 Comments No Sex and Gender Information Value Date Recorded Sex Assigned at Not on file Legal Sex Female 7:29 PM HUMAN CAPITAL MANAGER Gender Identity Female 02/03/2021 11:47 AM CDT Sexual Orientation Straight 02/03/2021 11 :47 AM CDT Occupation Industry Job Start Date Job End Date Not on file Not on file Not on file Not on file Last Filed Vital Signs Vital Sign Reading Time Taken Comments Blood Pressure 141/68 04/13/2025 8:21 AM CDT Pulse 79 04/13/2025 8:21 AM CDT Temperature 36.6 C (97.9 F) 04/13/2025 8:20 AM CDT Respiratory Rate 13 04/13/2025 8:21 AM CDT Oxygen Saturation 100% 04/13/2025 8:21 AM CDT Inhaled Oxygen Concentration - - Weight 87.1 kg (192 lb) 04/13/2025 8:21 AM CDT Height 162 cm (5' 3.78) 03/02/2025 1:06 PM CDT Body Mass Index 33.18 03/02/2025 1:06 PM CDT Plan of Treatment Not on file Procedures Procedure Name Priority Date/Time Associated Diagnosis Comments URINALYSIS AND REFLEX TO MICROSCOPIC AND CULTURE STAT 04/13/2025 9:31 AM CDT EGFR STAT 04/13/2025 8:38 AM CDT DIFFERENTIAL AUTO STAT 04/13/2025 8:3 8 AM CDT COMPREHENSIVE METABOLIC PANEL STAT 04/13/2025 8:38 AM CDT CBC WITH AUTO DIFFERENTIAL STAT 04/13/2025 8:38 AM CDT POCT RESPIRATORY SYNCYTIAL VIRUS Routine 03/02/2025 1:18 PM CDT Cough, unspecified type POC INFLUENZA A/B, COVID-19 ANTIGEN Routine 03/02/2025 1:16 PM CDT Cough, unspecified type SCREENING MAMMOGRAM BILATERAL W [facility] Schedule Routine, Read Routine (OP Routine) 02/21/2025 9:58 AM CDT Screening mammogram, encounter for COLONOSCOPY 07/25/2024 12:56 PM CDT IMAGING PAP AND HPV MRNA E6/E7 Routine 01/28/2021 12:00 AM HUMAN CAPITAL MANAGER from Last 3 Months or Most Recently Relevant to Health Maintenance Results * Urinalysis reflex to microscopic and culture Urine (04/13/2025 9:31 AM CDT) Color, ur Straw Yellow Clarity, ur Clear Clear [facility] ([place]) Specific gravity, ur 1.008 1.003 - 1.030 [facility] ([place] pH, urine 6.0 [facility] Comment: Interpretive Data U rine pH is affected by diet, medications, systemic acid-base disturbances, and renal tubular function. pH may affect urinary stone formation. For example, urine pH below 6.0 may help reduce the tendency for calcium phosphate stones and pH greater than 6.0 may reduce the tendency for uric acid stone formation. Source: [facility] Current Interpretive Data was last revised on 2017 Protein, ur ql Negative Negative [facility] ([place]) Glucose, ur ql Negative Negative [facility] ([place]) Ketones, ur Negative Negative [facility] ([place]) Bilirubin, ur Negative Negative [facility] ([place]) Blood, ur Negative Negative [facility] ([place]) Urobilinogen, ur <2.0 <2.0 mg/dL [facility] ([place]) Nitrite, ur Negative Negative [facility]) Leukocyte esterase, ur Negative Negative [facility] ([place]) UA reflex comment Reflex conditions for microscopic UA and culture not met. [facility] ([place]) Urine 04/13/2025 9:31 AM CDT 04/13/2025 9:33 AM CDT us Glendy Wilson MD LAB MICROBIOLOGY - GENERAL ORDERABLES Final Result [facility] ([place]) [address] [facility] Department of Laboratories [place], [place] [id number] * eGFR (04/13/2025 8:38 AM CDT) eGFR >90 >=60 mL/min/1. 73 m2 Comment: Interpretive Data Reference Interval Normal >/= 90 mL/min/1.73m2 Mildly decreased* 60 - 89 mL/min/1.73m2 Mildly to moderately decreased 45 - 59 mL/min/1.73m2 Moderately to severely decreased 30 - 44 mL/min/1.73m2 Severely decreased 15 - 29 mL/min/1.73m2 Kidney Failure < 15 mL/min/1.73m2 *Relative to young adult level Estimated glomerular filtration rate is determined by the 2020 CKD-EPI equation recommended by the National Kidney Foundation (A Unifying Approach to GFR Estimation: Recommendations of the NKF-ASK Task Force on Reassessing the Inclusion of Race in Diagnosing Kidney Disease, JASN 2020). The CKD-EPI equation should not be used for patients with unstable renal function and has not been validated in children and those over 70. Current interpretive data was last reviewed 2021. Blood 04/13/2025 8:38 AM CDT 04/13/2025 8:41 AM CDT Glendy Wilson MD LAB BLOOD ORDERABLE S Final Result [facility] ([place]) [address] [facility] Department [place] [address] * Differential, auto (04/13/2025 8:38 AM CDT) Neutrophil abs 3.07 1.50 - 6.50 K/cumm Imm gran abs 0.01 0.00 - 0.10 K/cumm [facility] ([place]) Lymphocyte abs 2.75 0.80 - 3.30 K/cumm [facility] ([place]) Monocyte abs 0.57 0.20 - 0.80 K/cumm [facility] ([place]) Eosinophil abs 0.21 0.00 - 0.50 K/cumm [facility] ([place]) Basophil abs 0.04 0.00 - 0.10 K/cumm [facility] ([place]) Neutrophil pct 46.0 % [facility] ([place]) Comment: Interpretive Data Percent cell count reference ranges are not reported, since discordance with absolute values may lead to misinterpretation of CBC data. Current Interpretive Data was last revised on 2018. Imm gran pct 0.2 % [facility] ([place]) Comment: Interpretive Data Percent cell count reference ranges are not reported, since discordance with absolute values may lead to misinterpretation of CBC data. Current Interpretive Data was last revised on 2018. Lymphocyte pct 41.4 % [facility] ([place]) Comment: Interpretive Data Percent cell count reference ranges are not reported, since discordance with absolute values may lead to misinterpretation of CBC data. Current Interpretive Data was last revised on 2018. Monocyte pct 8.6 % [facility] ([place]) Comment: Interpretive Data Percent cell count reference ranges are not reported, since discordance with absolute values may lead to misinterpretation of CBC data. Current Interpretive Data was last revised on 2018. Eosinophil pct 3.2 % [facility] ([place]) Comment: Interpretive Data Percent cell count reference ranges are not reported, since discordance with absolute values may lead to misinterpretation of CBC data. Current Interpretive Data was last revised on 2018. Basophil pct 0.6 % [facility] ([place]) Comment: Interpretive Data Percent cell count reference ranges are not reported, since discordance with absolute values may lead to misinterpretation of CBC data. Current Interpretive Data was last revised on 2018. Blood 04/13/2025 8:38 AM CDT 04/13/2025 8:41 AM CDT us Glendy Wilson MD LAB BLOOD ORDERABLE S Final Result [facility] ([place]) [address] [facility] Department [place] [address] * CBC with auto differential (04/13/2025 8:38 AM CDT) WBC 6.65 3.80 - 9.90 K/cumm Hgb 14.3 11.9 - 15.5 g/dL [facility] ([place]) Hct 43.3 35.6 - 45.5 % [facility] ([place]) Plt 274 150 - 400 K/cumm [facility] ([place]) MPV 9.4 9.1 - 12.3 fL [facility] ([place]) RBC 4.73 3.90 - 5.20 M/cumm [facility] ([place]) MCV 91.5 81.3 - 96.4 fL [facility] ([place]) MCH 30.2 27.1 - 33.3 pg [facility] ([place]) MCHC 33.0 32.3 - 35.7 g/dL [facility] RDW CV 12.5 11.1 - 14.9 % [facility] ([place]) RDW SD 42.1 35.7 - 48.1 fL [facility] ([place]) NRBC abs 0.00 0.00 - 0.01 K/cumm [facility] Blood 04/13/2025 8:38 AM CDT 04/13/2025 8:41 AM CDT us Glendy Wilson MD LAB BLOOD ORDERABLE S Final Result [facility] ([place]) [address] [facility] Department [place] [address] * (ABNORMAL) Comprehensive metabolic panel (04/13/2025 8:38 AM CDT) Sodium 139 135 - 145 mmol/L Potassium, pl 3.7 3.3 - 4.9 mmol/L [facility] Chloride 107 97 - 110 mmol/L [facility] CO2 20(L) 22 - 32 mmol/L [facility] ([place]) Anion gap 12 2 - 15 mmol/L [facility] ([place]) BUN 12 6 - 25 mg/dL [facility] Creatinine 0.75 0.60 - 1.10 mg/dL [facility] ([place]) Glucose 93 70 - 199 mg/dL [facility] ([place]) Comment: Interpretive Data Fasting glucose >/= 126 mg/dl is diagnostic for diabetes. Fasting is defined as no caloric intake for at least 8 hours. Fasting glucose between 100 mg/dl to 125 mg/dl is diagnostic of prediabetes. In a patient with classic symptoms of hyperglycemia or hyperglycemic crisis, a random glucose >/= 200 mg/dl is diagnostic for diabetes. In the absence of unequivocal hyperglycemia, results should be confirmed by repeat testing. The classification and Diagnosis of Diabetes Diabetes Care 2021; 46: S19-S40. Current interpretive data was last revised 2022. Calcium 8.9 8.5 - 10.3 mg/dL [facility] ([place]) Bilirubin, total 0.5 0.1 - 1.2 mg/dL [facility] ([place]) Protein, pl 6.8 6.5 - 8.5 g/dL [facility] ([place]) Albumin 3.8 3.5 - 5.0 g/dL [facility] ([place]) Alk phos 69 40 - 130 Units/L [facility] ([place]) ALT 18 7 - 45 Units/L [facility] ([place]) AST 19 10 - 45 Units/L [facility] ([place]) Blood 04/13/2025 8:38 AM CDT 04/13/2025 8:41 AM CDT Glendy Wilson MD LAB BLOOD ORDERABLE S Final Result [facility] ([place]) [address] [facility] Department of Laboratories [place] [id number] * POCT respiratory syncytial virus (03/02/2025 1:18 PM CDT) RSV Rapid Ag negative Nasal 03/02/2025 1:18 PM CDT Renetta Valladares MD POINT OF CARE TEST OR DERABLES Final Result * POC Influenza A/B, COVID-19 antigen (03/02/2025 1:16 PM CDT) Influenza A Ag, POC Negative Negative [facility] Influenza B Ag, POC Negative Negative [facility] COVID-19 Ag POC Presumptive Negative Presumptive Negative, Invalid [facility] Nasal 03/02/2025 1:16 PM CDT Renetta Valladares MD POINT OF CARE TEST OR DERABLES Final Result [facility] [address] [place] [address] * Screening Mammogram Bilateral [facility] [place] (02/21/2025 9:58 AM CDT) Anatomical Region Laterality Modality Breast Bilateral Mammography 02/23/2025 8:21 AM CDT Impressions 02/23/2025 8:21 AM CDT No evidence of malignancy in either breast. FINAL ASSESSMENT: BI-RADS Category 2: Benign. RECOMMENDATION: Recommend return for annual screening mammogram in 12 months. Electronically signed by: Bhaskar Burciaga M.D. Narrative 02/23/2025 8:21 AM CDT EXAMINATION: BILATERAL SCREENING MAMMOGRAM COMPARISON: 03/17/2023, 03/11/2022, 12/13/2020 TECHNIQUE: Full-field 2D and digital breast tomosynthesis (DBT) images were obtained. CAD was utilized. BREAST PARENCHYMAL COMPOSITION: There are scattered areas of fibroglandular density. FINDINGS: There are stable benign-appearing masses in the left breast. A left breast biopsy marking clip is unchanged in position. There is no new suspicious finding in either breast on mammogram. us Self Screening Mammogram IMG MAMMO PROCEDURES Fi nal Result * Colonoscopy (07/25/2024 12:56 PM CDT) Anatomical Region Laterality Modality Other Narrative Procedure Note Marian Dozier MD - 07/25/2024 12:56 PM CDT [facility] Patient Name: Martina Thayer Procedure Date: 07/25/2024 12:56 PM Date of : 1975 Admit Type: Outpatient Age: 49 Gender: Female Attending MD: Marian Dozier M.D. Room: [facility] ENDOSCOPY ROOM 3 Note Status: Finalized Patient Profile: This is a 49 year old female history of anxiety, migraine, urinary retention referred forcolonoscopy to evaluate for abnormal CT finding of wallthickening around the hepatic flexure. Last colonoscopy from 01/2023 showed one 5 mm tubular adenomas. No family history of colon cancer or colitis. Patient deniesany active GI issues aside from constipation that is controlled with high-fiber diet. Procedure: Colonoscopy Indications: Last colonoscopy: January 2023, Abnormal CT of the GI tract Referring MD: Renetta Valladares M.D. Providers: Marian Dozier M.D. Impression: - Perianal skin tags found on perianal exam. - Very localized mildly erythematous mucosa in the ascending colon that is nonspecific and not of clinical significance. Biopsied. - Tortuous colon. - The distal rectum and anal verge are normal on retroflexion view. - The CT finding is likely because of her tortous colon and sharply angulated turn around the hepatic flexure which can be seen as collapsed lumen inthat area. Recommendation: - Patient has a contact number available for emergencies. The signs and symptoms of potential delayed complications were discussed with thepatient. Return to normal activities tomorrow. Written discharge instructions were provided to thepatient. - Discharge patient to home (with escort). - Resume previous diet. - Continue present medications. - Await pathology results. - Repeat colonoscopy in 7 years for surveillancegiven history of tubular adenoma on last colonoscopy. - Return to referring physician as previously scheduled. Medicines: Monitored Anesthesia Care Complications: No immediate complications. Estimated Blood Loss: Estimated blood loss was minimal. Procedure: Pre-Anesthesia Assessment: - Prior to the procedure, a History and Physicalwas performed, and patient medications and allergieswere reviewed. The patient is competent. The risks and benefits of the procedure and the sedation optionsand risks were discussed with the patient. Allquestions were answered and informed consent was obtained. Patient identification and proposed procedure were verified by the physician, the account engineer and the gate technician in the endoscopy suite. Mental Status Examination: normal. Prophylactic Antibiotics: The patient does not require prophylactic antibiotics. Prior Anticoagulants: The patient has taken no anticoagulant or antiplatelet agents. Afterreviewing the risks and benefits, the patient was deemed in satisfactory condition to undergo the procedure.The anesthesia plan was to use monitored anesthesiacare (MAC). Immediately prior to administration of medications, the patient was re-assessed foradequacy to receive sedatives. The heart rate, respiratory rate, oxygen saturations, blood pressure, adequacyof pulmonary ventilation, and response to care were monitored throughout the procedure. The physical status of the patient was re-assessed after the procedure. The benefits, risks and alternatives of theprocedure and sedation were discussed and informed consentwas obtained. All questions were answered. Please referto the signed informed consent document in the medical record. The bowel preparation used was Miralax and bisacodyl tablets via split dose instruction. The scope was passed under direct vision. TheColonoscope [id number] was introduced through the anus and advanced to the the cecum, identified by appendiceal orifice and ileocecal valve. The colonoscopy was somewhat difficult due to atortuous colon. Successful completion of the procedure was aided by changing the patient to a supine positionand using manual pressure. The patient tolerated the procedure well. The quality of the bowelpreparation was excellent. Bowel prep was administered using a split dose. Findings: Skin tags were found on perianal exam. A localized area of mildly erythematous mucosa was found in the ascending colon. This was biopsied with a cold forceps forhistology. The colon (entire examined portion) was tortuous. Advancing the scope required changing the patient to a supine position. The retroflexed view of the distal rectum and anal verge was normaland showed no anal or rectal abnormalities. Marian Dozier M.D. 07/25/2024 3:14:01 PM Number of Addenda: 0 Note Initiated On: 07/25/2024 12:56 PM Procedure Code(s): --- Professional --- 05928, Colonoscopy, flexible; diagnostic, including collection of specimen(s) by brushing or washing, when performed (separateprocedure) --- Technical --- 93092, Colonoscopy, flexible; diagnostic, including collection of specimen(s) by brushing or washing, when performed (separateprocedure) Diagnosis Code(s): --- Professional --- K64.4, Residual hemorrhoidal skin tags R93.3, Abnormal findings on diagnostic imaging of other parts of digestive tract --- Technical --- K64.4, Residual hemorrhoidal skin tags R93.3, Abnormal findings on diagnostic imaging of other parts of digestive tract CPT copyright 2020 [employer]. All rights reserved. The codes documented in this report are preliminary and upon environmental remediation consultant reviewmay be revised to meet current compliance requirements. Recognized by the [employer] for promoting quality in endoscopy Marian Dozier MD ENDOSCOPY PROCEDURES Final Resul t * (ABNORMAL) Imaging Pap and HPV mRNA E6/E7 (01/28/2021 12:00 AM HUMAN CAPITAL MANAGER) CLINICAL INFORMATION: [facility] Comment:Routine exam LMP [facility] Comment:UNKNOWN Previous Pap [facility] Comment:INFORMATION NOT PROV IDED Prev. Bx [facility] Comment:INFORMATION NOT PROV IDED SOURCE: [facility] Comment:Cervix, Endocervix Pap, specimen adequacy [facility] [employer] [facility] Comment: Satisfactory for evaluation. Endocervical/transformation zone component present. Age and/or menstrual status not provided Pap, general categorization (A) [facility] Comment:EPITHELIAL CELL ABNO RMALITY HPV interp (A) [facility] Comment: Atypical Squamous Cells of Undetermined Significance (ASC-US) Endometrial Cells present in a woman 45 years of age or older. COMMENTS [facility] Comment: This Pap test has been evaluated with computer assisted technology. The clinical significance of endometrial cells should be interpreted in the context of menstrual history and reproductive status. If out of phase of cycle or after menopause, this finding may be associated with normal functioning endometrium, benign endometrium with stromal breakdown, hormonal alterations and, less commonly, endometrial neoplasia. Clinical correlation is suggested. Animal Behaviorist Harshil [facility] Comment: VERA, CT(ASCP) CT screening location: [place] [address] [address] [place] [address] Pathologist [facility] Comment: Cristiano Romo M.D., Board Certified in Anatomic Pathology and Cytopathology. (electronic signature) Comment [facility] Comment: EXPLANATORY NOTE: The Pap is a screening test for cervical cancer. It is not a diagnostic test and is subject to false negative and false positive results. It is most reliable when a satisfactory sample, regularly obtained, is submitted with relevant clinical findings and history, and when the Pap result is evaluated along with historic and current clinical information. Human papillomavirus RNA, High Risk E6/E7 Not Detected Not Detected [facility] Comment: Methodology: Label Rewinder-Mediated Amplification This assay detects E6/E7 viral messenger RNA (mRNA) from 14 high-risk HPV types (16,18,31,33,35,39,45,51,52,56,58,59,66,68). The analytical performance characteristics of this assay have been determined by [employer]. The modifications have not been cleared or approved by the FDA. This assay has been validated pursuant to the CLIA regulations and is used for clinical purposes. For additional information, please refer to http://education.Bomberbot.Classroom IQ/faq/QWS181x8 (This link if provided for information/ educational purposes only.) 01/28/2021 01/29/2021 6:3 9 AM HUMAN CAPITAL MANAGER Narrative [facility] - 02/01/2021 1:01 PM CDT FASTING: UNKNOWN us Sara Colón MD LAB PATHOLOGY ORDERAB LES Final Result [place] [address] [address] [place] [address] [facility] [address] [place] [address] from Last 3 Months or Most Recently Relevant to Health Maintenance Insurance [facility] CHOICE PLUS [facility] CHOICE PLUS Advance Directives For more information, please contact: [phone] * Full Code (Latest Code Status on File) Date Activated Date Inactivated Comments 07/25/2024 12:34 PM 07/25/2024 7:26 PM * Full Code Date Activated Date Inactivated Comments 07/25/2024 12:34 PM 07/25/2024 12:34 PM * Full Code Date Activated Date Inactivated Comments 02/12/2023 11:43 AM 02/12/2023 7:51 PM * Full Code Date Activated Date Inactivated Comments 02/12/2023 11:43 AM 02/12/2023 11:43 AM Care Teams Managed Care Manager Relationship Specialty Start Date End Date Renetta Valladares MD [address] [place] [address] [address] [place] [address] PCP - General Family Medicine 11/27/22 Mariaelena Magallon MD [address] [place] [address] Referring Physician Gynecology 07/18/24
--- OUTSIDE RECORDS SUMMARY | 2025-05-31 20:27 | XMS_ITS | Continuity of Care Document ---
Author Organization [facility] Address [address] [place] [address] Phone Care Team Providers Care Mixer Runner Name Role Phone Judson Anguiano MD Unavailable Unavailable Allergies, Adverse Reactions, Alerts Substance Reaction Status Criticality No Known Allergies Active No Inform ation Medications Medication Instructions Dosage Effective Dates (start - stop) Status Comments valacyclovir 1 gram tablet - Active methylprednisolone 4 mg tablets in a dose pack TAKE 6 TABLETS ON DAY 1 DIRECTED ON PACKAGE AND DECREASE BY 1 TAB EACH DAY FOR A TOTAL OF 6 DAYS - Active cyclobenzaprine 10 mg tablet TAKE 1 TABLET BY MOUTH 3 TIMES DAILY NEEDED FOR MUSCLE SPASMS FOR UP TO 14 DAYS. - Active prednisone 10 mg tablet - Ac tive albuterol sulfate 2.5 mg/3 mL (0.083 %) solution for nebulization INHALE CONTENT OF 1 VIAL VIA NEBULIZER EVERY 6 HOURS - Active albuterol sulfate HFA 90 mcg/actuation aerosol inhaler 2 PUFF INHALED FOUR TIMES DAILY NEEDED FOR SHORTNESS OF BREATH OR WHEEZING - Active Procedures Procedure Date OFFICE/OUTPATIENT VISIT EST FRAN CONNELLY COMPL 4/MORE VIEWS OFFICE/OUTPATIENT VISIT NEW Advance Directives Directive Yes / No Effective Date File Name No Information Encounters Encounter Description Practice Location Reason(s) For Visit Diagnoses Date Provider Providers Copied on Encounter OFFICE/OUTPAT IENT VISIT EST [facility] , [address], [address], [place] tel:[phone] [facility] [place] knee (chief complaint) Primary osteoarthritis of right knee [address] [place], [place], [id number] . tel:[phone] Referring Provider: Lori [address], [place], [address] . tel:[phone] OFFICE/OUTPAT IENT VISIT NEW [facility] , [address] [address], [place], [address], [place] tel:[phone] [facility] [place] knee (chief complaint) Pain in right kneeBody mass index [BMI] 32.0-32.9, adult [address] [place], [place], [id number] . tel:[phone] Referring Provider: Renetta jauregui, [address], [place], [address] . tel:[phone] Family History Family Member Type Diagnosis Age At Onset Problem Family history of Cancer, br east Problem Family history of Cancer, ki dney Problem Family history of Congenital heart disease Problem Family history of Cancer, un known type Problem Family history of Diabetes m ellitus Problem Family history of Hypertensi on Payers Payer name Insurance type Covered democrat ID Authoriza titimothy(s) [facility] Choice/Choice Plus E2 OT [id number] Social History Type Description Quantity Date Captured Comments Alcohol Use Details Unknown Caffeine Use Details Unknown Tobacco Use Status No Information Smoking Status No Information Sex Female Chief Complaint And Reason For Visit From encounter dated '12/28/2022 10:05'. knee (chief complaint) Reason For Referral Reason For Referral No Information Plan Of Treatment Date Type Action Status Referral Ordered: FRAN CONNELLY COMPL 4/MORE VIEWS RT ordered History Of Present Illness Encounter Date Complaint History Of Prese nt Illness Comments: Ms. Ruiz reis is a 47-year-old female who returns to the clinic for follow-up status post MRI of her right knee. She is here today to review the results and discuss treatment options. She reports that her knee is uncomfortable; however, there is not significant amount of pain. She notes the right knee is sensitive to the touch. The patient is currently taking naproxen. knee knee Martina James is a 47 year old female. Comments: Ms. Ruiz reis is a 47-year-old female who presents to the clinic for evaluation of her right knee. She reports it began in 07/2022. She thinks she may have missed a step while going out to her garage. The patient has difficulty extending the knee. She has been taking ibuprofen and Aleve. She has less swelling now.The patient reports that when her symptoms started, she felt tightness and swelling when she bent the knee. She notes a couple of times when she shifted her weight from her left to her right, she could feel something pulling and shifting.The patient is scheduled for an MRI of the right knee on 12/25/2022 at [facility] in [place]. Functional Status Date Functional Assessmen t No Information Instructions Date Instruction Additional Infor leann Carisa had a long dis cussion with Martina in the office today. Her meniscus looks fairly good; therefore, I do not think she needs surgical intervention for the time being. I did offer her a cortisone injection, but she wants to hold off on that at this time. She is going to try home treatment with anti-inflammatories, Glucosamine, as well as an exercise program. The patient can follow up with me as necessary.The medical record documentation of this Provider's service encounter was entered by Anne Marie Cm acting as Dietitian Research for Judson Angiuano MD.The documentation recorded by the front office medical assistant accurately reflects the evaluation, management and related clinical services I personally performed, the plan and decisions made by me. Related to Primary osteoarthritis of right knee I am concerned about a medial meniscus tear given the location Martina's pain. She has a fair amount of underlying osteoarthritis in that knee. I would say moderate in the patellofemoral joint and mild in the medial and lateral compartments; however, her pain seems to be discrete from this underlying osteoarthritis. She has an MRI ordered by her primary care physician, which I agree is probably the next step. She will follow up with me a day or two after that MRI is done. We will go over the results and consider further treatment.The medical record documentation of this Provider's service encounter was entered by Ivonne Dumont, acting as Dietitian Research for Judson Anguiano MD.The documentation recorded by the front office medical assistant accurately reflects the evaluation, management and related clinical services I personally performed, the plan and decisions made by me. Related to Pain in right knee Dietary needs education Related to Body mass index [BMI] 32.0-32.9, adult Assessments Type Assessment Date assessment Primary osteoarthritis of right knee impression ImpressionRight knee moderate pa tellofemoral degeneration Patient Care Teams Name Effective Dates (start - stop) Status Members No Information
--- OUTSIDE RECORDS SUMMARY | 2025-05-31 20:27 | XMS_ITS | Clinical Summary ---
Author Organization [facility] Address [address] [place] [address] Phone Care Team Providers Care Room Service Manager Name Role Phone Milan Ledesma MD Unavailable [phone] Renetta Valladares MD Primary Care Provide r Allergies Active Allergy Reactions Criticality Noted Date Comments Clarithromycin Nausea Molds & Smuts Shortness of Breath,Runny Nose,Other (see Comments) 03/19/2018 Sinus congestion, headache , itchy watery eyes Medications Fexofenadine HCl (AIDA PO) Take by mouth. Activ e Multiple Vitamin (MULTIVITAMINS) Capsule take 1 capsule by oral route every day 6 Active Lomira-3 Fatty Acids (OMEGA-3 FISH OIL PO) Take by mouth. Ac tive other by Other route. Collogen/biotin Active albuterol 108 (90 Base) MCG/ACT Aerosol Solution take 2 Puffs by inhalation every 4 hours as needed. Active diphenhydrAMINE (BENADRYL) 25 MG Tablet Take 25 mg by mouth nightly. Active methylPREDNISol one (MEDROL DOSPACK) 4 MG Tablet Therapy Pack Use as per instructions on package. 21 Tablet 2 Active Escitalopram Oxalate 5 MG Tablet Take 5 mg by mouth daily. Active Active Problems Problem Noted Date Diagnosed Date Hyperlipidemia 03/22/2018 Seasonal allergic rhinitis Overview (03/22/2018): Spring and Fall Resolved Problems Problem Noted Date Diagnosed Date Resolved Date Intramural leiomyoma of uterus 11/10/2019 12/23/2020 Overview (12/23/2020): Note: Unchanged Immunizations Immunization Administration Dates Next Due TD VACCINE 03/22/2018 TDAP Vaccine 05/24/2007 Family History Medical History Relation Name Comments Hypertension Brother 1 Hypertension Brother 2 Congestive Heart Failure Father Diabetes Father Emphysema Father Hypertension Father Cancer Maternal Grandfather ? Hypertension Maternal Grandmother Arthritis Mother Hypertension Mother No Known Problems Paternal Grandfather No Known Problems Paternal Grandmother Seizures Sister Relation Name Status Comments Brother 1 Alive Brother 2 Alive Father Maternal Grandfather Maternal Grandmother Mother Alive Paternal Grandfather Paternal Grandmother Sister Alive Social History Tobacco Use Types Packs/Day Years Used Date Smoking Tobacco: Never Smokeless Tobacco: Never Tobacco Cessation:Counseling Given: No Alcohol Use Standard Drinks/Week Comments Yes 0 (1 standard drink = 0.6 oz pur e alcohol) rare PHQ-2 Answer Date Recorded Total Score - Questions 1-9 0 12/20 Education Answer Date Recorded What is the highest level of school you have completed or the highest degree you have received? 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 Not on file Not on file Last Filed Vital Signs Vital Sign Reading Time Taken Comments Blood Pressure 146/78 05/10/2024 10:30 AM CDT Pulse 57 05/10/2024 10:33 AM CDT Temperature 36.3 C (97.4 F) 05/10/2024 9:19 AM CDT Respiratory Rate 18 05/10/2024 9:19 AM CDT Oxygen Saturation 100% 05/10/2024 10:33 AM CDT Inhaled Oxygen Concentration - - Weight 86.2 kg (190 lb) 05/10/2024 9:19 AM CDT Height 165.1 cm (5' 5) 05/10/2024 9:19 AM CDT Body Mass Index 31.62 05/10/2024 9:19 AM CDT Plan of Treatment Health Maintenance Due Date Last Done Comments Hepatitis C Virus (HCV) Screening 1974 Hepatitis B Immunization (1 of 3 - 19+ 3-dose series) 1993 Pap Smear 1995 Cologuard 2019 Immunochemical Fecal Occult Blood 2019 Pneumococcal Immunization (50+ years) (1 of 1 - PCV) 2024 Zoster Immunization (1 of 2) 2024 Mammogram 03/17/2024 03/17/2023, 04/2 01/2022, 12/13/2020, Additional history exists SARS-COV-2 Immunization ( - season) 2024 Influenza Immunization (#1) 2025 Cervical Cancer Screening (CCS) 01/28/2026 HPV/Cotest 01/28/2026 01/28/2021 Td Immunization Every 10 Years (Adults With 1 Tdap) 03/22/2028 03/22/2018, 05/24/2007 Colonoscopy 02/12/2033 02/12/2023 Colorectal Cancer Screening 02/12/2033 Respiratory Syncytial Virus (RSV) Immunization (Adult) (1 - 1-dose 75+ series) 2049 Discussion re Starting/Frequency of Mammograms Discontinued 03/17/2023, 03/11/2022, 12/13/2020, Additional history exists Human Papillomavirus (HPV) Immunization Aged Out No longer eligible based on patient's age to complete this topic Meningococcal Immunization (ACWY) Aged Out No longer eligible based on patient's age to complete this topic Rotavirus Immunization Aged Out No lo nger eligible based on patient's age to complete this topic Procedures Procedure Name Priority Date/Time Associated Diagnosis Comments MARYANN SCREENING BILATERAL WITH CAD Routine 07/14/2017 from Last 3 Months or Most Recently Relevant to Health Maintenance Results * MARYANN SCREENING BILATERAL WITH CAD (07/14/2017) Anatomical Region Laterality Modality breast Bilateral Mammography Milan Ledesma MD IMG MAMMO ORDERABLES Final Res ult from Last 3 Months or Most Recently Relevant to Health Maintenance Insurance [facility] Care Teams Room Service Manager Relationship Specialty Start Date End Date Renetta Valladares MD [address] [place] [address] [address] [place] [address] PCP - General Family Medicine 05/10/24 Milan Ledesma MD Consulting Physician Obstetrics & Gynecology 03/22/18
--- OUTSIDE RECORDS SUMMARY | 2025-05-31 20:27 | XMS_ITS | Clinical Summary ---
Author Organization [facility] Address [address] [place] [address] Care Team Providers Care Injection Molding Technician Name Role Phone Renetta Valladares MD Primary Care Provide r Mariaelena Magallon MD Unavailable [phone] Allergies Active Allergy Reactions Criticality Noted Date [...] 12/09/2024 Assessment & Plan (12/09/2024 4:36 PM SPA ASSOCIATE): New concern Likely arthritis flaring up Recommend [...] 2024 Assessment & Plan (2024 9:20 AM SPA ASSOCIATE): New concern Not at goal Poct dipstick showed small amounts of blood which is expected as she is finishing up her menstrual cycle but no sign of infection Will get urinalysis and microscopy Post void bladder scan 176ml left over Referral to urology Lump of skin of back 12/03/2023 Assessment & Plan (12/03/2023 4:32 PM SPA ASSOCIATE): Likely lipoma No opening to suggest a cyst and no discoloration Offered US for confirmation but she would like to hold off on this and continue to monitor for now Right hip pain 12/03/2023 Assessment & Plan (12/03/2023 4:34 PM SPA ASSOCIATE): Chronic No improvement Tylenol and heat Referral to physical therapy F/u if no improvement Migraine without aura and wi thout status migrainosus, not intractable 10/10/2023 Assessment & Plan (12/09/2024 12:31 PM SPA ASSOCIATE): chronic problem continue rizatriptan Follow-up p.r.n. Assessment & Plan (12/03/2023 9:04 AM SPA ASSOCIATE): chronic problem continue rizatriptan 10 mg-take 1 tablet by mouth as needed-may repeat in 2 hours if headache has not resolved, do not exceed more than 30 mg in a 24 hour. Patient educated on medication and side effects Continue to monitor Follow-up p.r.n. Assessment & Plan (10/10/2023 2:42 PM SPA ASSOCIATE): Acute on chronic problem-this has been in [...] 09/26/2023 Assessment & Plan (09/26/2023 12:51 PM SPA ASSOCIATE): Acute problem- this is a new problem [...] 09/26/2023 Assessment & Plan (12/03/2023 4:31 PM SPA ASSOCIATE): Chronic Stable Refer to physical therapy Can take the muscle relaxer as needed but will not do a refill F/u if no improvement with PT. Will consider referral to pain management at that time Assessment & Plan (10/10/2023 2:43 PM SPA ASSOCIATE): Acute problem- stable, but not at goal-patient [...] p.r.n. Assessment & Plan (09/26/2023 12:46 PM SPA ASSOCIATE): Acute problem- this is a new problem [...] 09/26/2023 Assessment & Plan (12/09/2024 3:26 PM SPA ASSOCIATE): chronic problem- stable Stable of lexapro Follow-up as scheduled-sooner p.r.n. Patient reiterated no suicidal thoughts at this time; take medication as directed; contact 911 and go to the ER if becomes suicidal; discussed side effects of medication with patient; encouraged healthy diet and exericise; encouraged patient to see a counselor Assessment & Plan (12/03/2023 9:01 AM SPA ASSOCIATE): Acute problem- improving Continue Escitalopram 5 mg- take 1 tablet daily Follow-up as scheduled-sooner p.r.n. Patient reiterated no suicidal thoughts at this time; take medication as directed; contact 911 and go to the ER if becomes suicidal; discussed side effects of medication with patient; encouraged healthy diet and exericise; encouraged patient to see a counselor Assessment & Plan (10/10/2023 2:43 PM SPA ASSOCIATE): Acute problem- improving Continue Escitalopram 5 mg- [...] counselor Assessment & Plan (09/26/2023 12:48 PM SPA ASSOCIATE): Acute problem- this is a new problem- [...] exericise; encouraged patient to see a counselor Jasmina ledesma 07/10/2023 Assessment & Plan (07/10/2023 5:46 PM CDT): New Possible superimposed cellulitis Continue antibiotics prescribed by CC Add prednisone 40mg daily to reduce inflammation F/u in 1 week. If no improvement will try alternative antibiotic Menorrhagia with regular cycle 04/27/2023 Assessment & Plan (09/26/2023 12:49 PM SPA ASSOCIATE): Acute problem- patient is following OBGYN Encouraged to follow-up with OBGYN as scheduled- sooner p.r.n. Continue current medications as directed by OBGYN Continue to monitor Chronic pain of right knee 11/27/2022 Assessment & Plan (11/27/2022 4:38 PM SPA ASSOCIATE): Xray showed arthritis No improvement with physical therapy or nsaids Mri of right knee and referral to ortho Encounter for wellness examination 11/26/2022 Assessment & Plan (12/09/2024 3:17 PM SPA ASSOCIATE): Labs pending Flu declines Colonoscopy up to date, due 2030 Pap smear follows with ob Mammo follows with ob F/u in 1 year for annual Assessment & Plan (12/03/2023 9:06 AM SPA ASSOCIATE): Ordered CBC, cmp, lipid, hgb a1c, urinalysis Flu declines Colonoscopy up to date Pap smear follows with ob Mammo follows with ob F/u in 1 year for annual Assessment & Plan (11/27/2022 4:00 PM SPA ASSOCIATE): Ordered CBC, cmp, lipid, hgb a1c, hep c, TSH w/ reflex to t4 Flu declines Colonoscopy referral placed Pap smear follows with ob Mammo follows with ob F/u in 1 year for annual Atopic rhinitis 04/04/2014 Skin benign neoplasm 02/26/2013 Assessment & Plan (11/27/2022 3:54 PM SPA ASSOCIATE): Stable Continue to monitor Herpes simplex virus (HSV) infection 02/26/2013 Assessment & Plan (11/27/2022 3:54 PM SPA ASSOCIATE): Stable / clinically quiescent. Will continue to monitor. Continue valtrex as needed Skin neoplasm 02/26/2013 Resolved Problems Problem Noted Date Diagnosed Date Resolved Date Class 1 obesity due to exces s calories with serious comorbidity and body mass index (BMI) of 33.0 to 33.9 in adult 03/02/2025 03/02/2025 Migraine 02/05/2013 10/10/2023 Overview (02/23/2017): Migraine Encounters Date Type Department Care Team Description 04/13/2025 8:22 AM CDT - 04/13/2025 11:05 AM CDT Emergency [facility] Emergency Department [address] [place] [address] Glendy Wilson MD Urinary retention (Primary Dx) Discharge Disposition: Discharge to home or self care 03/02/2025 1:30 PM CDT Office Visit [facility] Primary Care at [address] [place] [address] Renetta Valladares MD Cough, unspecified type (Primary Dx); Class 1 obesity due to excess calories with serious comorbidity and body mass index (BMI) of 33.0 to 33.9 in adult; Upper respiratory tract infection, unspecified type from Last 3 Months Immunizations Immunization Administration Dates Next Due Influenza, Unspecified 12/09/2024(Deferr ed: Patient Refused),09/07/2024(Deferred: Patient Refused),2024(Deferred: Patient Refused),09/07/2023(Deferred: Patient Refused) Td, adsorbed 03/22/2018 Tdap 05/24/2007 Surgical History Surgery Date Site/Laterality Comments BREAST EXCISIONAL BIOPSY Left DILATION AND CURETTAGE OF UTERUS 11/19/1996 - 11/18/1997 miscarriage BREAST BIOPSY 12/26/2019 Left benign BREAST LUMPECTOMY 11/19/2006 - 11/18/2007 Right benign COLONOSCOPY 02/12/2023 DILATION AND CURETTAGE OF UTERUS 03/31/2024 N/A cyct removed also Medical History Medical History Date Comments Hx Other Medical 01-QI SPECIALIST Hx Other Medical heart palps neg ative echo. Gastroesophageal reflux disease GERD Hx Other Medical oral HSV Hx Other Medical 2007 Breast lump; Co mments: benign tumor removed from right breast.; Outcome: BENIGN Urinary retention Cyst, uterus 03/31/2024 Family History Medical History Relation Name Comments Hypertension Brother 1 casa Other Brother 2 oscar Alive and well; COPD Father Coronary artery disease Father Caus e of Diabetes Father Hypertension Father Breast cancer Father's Sister Atrial fibrillation Mother Kidney cancer Mother Other Mother Alive and well; Pancreatic cancer Mother's Brother Kidney cancer Mother's Sister Breast cancer Paternal Grandmother Asthma Sister february Seizures Sister february Relation Name Status Comments Brother 1 casa Alive Brother 2 oscar Alive Father Father's Sister Mother Alive Mother's Brother Mother's Sister Paternal Grandmother Sister february Social History Tobacco Use Types Packs/Day Years [...] on file Legal Sex Female 7:29 PM SPA ASSOCIATE Gender Identity Female 02/03/2021 11:47 AM CDT Sexual Orientation Straight 02/03/2021 11 :47 AM CDT Occupation Industry Job Start Date Job End Date Not on file Not on file Not on file Not on file Obstetrics History Para Term AB IAB SAB Ectopic Multiple Livin g Live Births 4 3 3 1 1 3 3 Date Outcome GA Total Labor Labor/2nd/3rd Weight Sex Type Anes PTL [place] A1 A5 Name Clin 1996 SAB D&C 1997 Term 3.572 kg (7 lb 14 oz) M Vag-S pont Living 1999 Term 3.544 kg (7 lb 13 oz) F Vag-S pont Living 2002 Term 3.572 kg (7 lb 14 oz) M Vag-S pont Living Last Filed Vital Signs Vital Sign Reading [...] 03/02/2025 1:06 PM CDT Plan of Treatment Health Maintenance Due Date Last Done Comments Hepatitis C Screening 1975 Hepatitis B Screening 1992 Cervical Cancer Screening 01/28/2022 01/28/2021 Zoster Vaccine (1 of 2) 2024 Influenza Vaccine (#1) 2025 Regular Well Visit/Exam 18-64 12/09/2025 12/09/2024, 12/03/2023, 02/02/2023, Additional history exists Breast Cancer Screening-Mammogram 02/21/2026 02/21/2025, 03/17/2023, 03/17/2023, Additional history exists Depression Screening 03/02/2026 03/02/2025, 12/09/2024, 2024, Additional history exists DTaP/Tdap/Td Vaccine (3 - Td or Tdap) 03/22/2028 03/22/2018, 05/24/2007 Colon Cancer Screening-Colonoscopy 07/25/2031 07/25/2024, 02/12/2023 Pneumococcal vaccine <65 Aged Out No longer eligible based on [...] HPV MRNA E6/E7 Routine 01/28/2021 12:00 AM SPA ASSOCIATE from Last 3 Months or Most Recently [...] tendency for uric acid stone formation. Source: [place] [email or web address] Current Interpretive Data was last revised on [...] LAB MICROBIOLOGY - GENERAL ORDERABLES Final Result [facility] [place] [address] * eGFR (04/13/2025 8:38 AM CDT) eGFR [...] MD LAB BLOOD ORDERABLE S Final Result [facility] 1 [facility] Department [place] [address] * Differential, auto (04/13/2025 8:38 AM CDT) Neutrophil abs 3.07 1.50 - 6.50 K/cumm Imm gran abs 0.01 0.00 - 0.10 K/cumm [facility] ([place]) Lymphocyte abs 2.75 0.80 - 3.30 K/cumm [...] revised on 2018. Basophil pct 0.6 % [facility] Comment: Interpretive Data Percent cell count reference ranges are not reported, since discordance with absolute values may lead to misinterpretation of CBC data. Current Interpretive Data was last revised on 2018. Blood 04/13/2025 8:38 AM CDT 04/13/2025 8:41 AM CDT us Glendy Wilson MD LAB BLOOD ORDERABLE S Final Result [facility] 1 [facility] Department [place] [address] * CBC with auto differential (04/13/2025 8:38 AM CDT) Pathologist [facility] WBC 6.65 3.80 - 9.90 K/cumm Hgb 14.3 11.9 - 15.5 g/dL [facility] Hct 43.3 35.6 - 45.5 % [facility] Plt 274 150 - 400 K/cumm [facility] ([place] MPV 9.4 9.1 - 12.3 fL [facility] RBC 4.73 3.90 - 5.20 M/cumm [facility] MCV 91.5 81.3 - 96.4 fL [facility] MCH 30.2 27.1 - 33.3 pg [facility] MCHC 33.0 32.3 - 35.7 g/dL [facility] RDW CV 12.5 11.1 - 14.9 % [facility] RDW SD 42.1 35.7 - 48.1 fL [facility] NRBC abs 0.00 0.00 - 0.01 K/cumm [facility] Blood 04/13/2025 8:38 AM CDT 04/13/2025 8:41 AM CDT us Glendy Wilson MD LAB BLOOD ORDERABLE S Final Result [facility] 1 [facility] Department [place] [address] * (ABNORMAL) Comprehensive metabolic panel (04/13/2025 8:38 AM CDT) [facility] Sodium 139 135 - 145 mmol/L Potassium, pl 3.7 3.3 - 4.9 mmol/L [facility] Chloride 107 97 - 110 mmol/L [facility] CO2 20(L) 22 - 32 mmol/L [facility] Anion gap 12 2 - 15 mmol/L [facility] BUN 12 6 - 25 mg/dL [facility] Creatinine 0.75 0.60 - 1.10 [...] classification and Diagnosis of Diabetes Diabetes Care 202; 46: S19-S40. Current interpretive data was last [...] MD LAB BLOOD ORDERABLE S Final Result [facility] ([place] 1 [facility] Department of Laboratories [place], [place] [id number] * POCT respiratory syncytial virus (03/02/2025 1:18 PM CDT) RSV Rapid Ag negative Nasal 03/02/2025 1:18 PM CDT Renetta Valladares MD POINT OF CARE TEST OR DERABLES Final Result * POC Influenza A/B, COVID-19 antigen (03/02/2025 1:16 PM CDT) Influenza A Ag, POC Negative Negative [facility] Influenza B Ag, POC Negative Negative [facility] COVID-19 Ag POC Presumptive Negative Presumptive Negative, Invalid [facility] Nasal 03/02/2025 1:16 PM CDT Renetta Valladares MD POINT OF CARE TEST OR DERABLES Final Result [facility] PCP [facility] 2 [facility] [address] [place] [address] * Screening Mammogram Bilateral W Sal[place] (02/21/2025 [...] Region Laterality Modality Other Narrative Procedure Note Tu, Yixi, MD - 07/25/2024 12:56 PM CDT [facility] Patient Name: Martina Thayer Procedure Date: 07/25/2024 12:56 PM Date of : 1975 Admit Type: Outpatient Age: 49 Gender: Female Attending MD: Marian Dozier M.D. Room: [facility] ENDOSCOPY ROOM 3 Note Status: Finalized Patient [...] procedure were verified by the physician, the head batcher and the parking technician in the endoscopy suite. Mental Status [...] scope was passed under direct vision. TheColonoscope [id number] was introduced through the anus and advanced [...] 12:56 PM Procedure Code(s): --- Professional --- 09510, Colonoscopy, flexible; diagnostic, including collection of specimen(s) by brushing or washing, when performed (separateprocedure) --- Technical --- 94568, Colonoscopy, flexible; diagnostic, including collection of specimen(s) by brushing or washing, when performed (separateprocedure) Diagnosis Code(s): --- Professional --- K64.4, Residual hemorrhoidal skin tags R93.3, Abnormal findings on diagnostic imaging of other parts of digestive tract --- Technical --- K64.4, Residual hemorrhoidal skin tags R93.3, Abnormal findings on diagnostic imaging of other parts of digestive tract CPT copyright 2020 [employer]. All rights reserved. The codes documented in this report are preliminary and upon patent clerk reviewmay be revised to meet current compliance requirements. Recognized by the [employer] for promoting quality in endoscopy us Marian Dozier MD ENDOSCOPY PROCEDURES Final Resul t * (ABNORMAL) Imaging Pap and HPV mRNA E6/E7 (01/28/2021 12:00 AM SPA ASSOCIATE) CLINICAL INFORMATION: [facility] Comment:Routine exam LMP [facility] Comment:UNKNOWN Previous Pap [facility] Comment:INFORMATION NOT PROV IDED Prev. Bx [facility] Comment:INFORMATION NOT PROV IDED SOURCE: [facility] Comment:Cervix, Endocervix Pap, specimen adequacy [facility] Comment: Satisfactory for evaluation. Endocervical/transformation zone component present. Age and/or menstrual status not provided Pap, general categorization (A) [facility] Comment:EPITHELIAL CELL ABNO RMALITY HPV interp (A) [facility] Comment: Atypical Squamous Cells of Undetermined Significance (ASC-US) Endometrial Cells present in a woman 45 years of age or older. COMMENTS [facility] Comment: This Pap test has been evaluated with computer assisted technology. The clinical significance of endometrial cells should be interpreted in the context of menstrual history and reproductive status. If out of phase of cycle or after menopause, this finding may be associated with normal functioning endometrium, benign endometrium with stromal breakdown, hormonal alterations and, less commonly, endometrial neoplasia. Clinical correlation is suggested. Water Plant Maintenance Mechanic [facility] Comment: [place], [place](ASCP) CT screening location: [place] [address] [place] [address] [facility] Comment: Cristiano Romo M.D., Board Certified in Anatomic Pathology and Cytopathology. (electronic signature) Comment [facility] Comment: EXPLANATORY NOTE: The Pap is a [...] High Risk E6/E7 Not Detected Not Detected [facility] [place] [facility] Comment: Methodology: Assistant Wrestling Coach-Mediated Amplification This assay detects E6/E7 viral messenger RNA (mRNA) from 14 high-risk HPV types (16,18,31,33,35,39,45,51,52,56,58,59,66,68). The analytical performance characteristics of this assay have been determined by [employer]. The modifications have not been cleared or approved by the FDA. This assay has been validated pursuant to the CLIA regulations and is used for clinical purposes. For additional information, please refer to http://education.Venyo/faq/PRD068i2 (This link if provided for information/ educational purposes only.) 01/28/2021 01/29/2021 6:3 9 AM SPA ASSOCIATE Narrative [facility] - 02/01/2021 1:01 PM CDT FASTING: UNKNOWN Sara Colón MD LAB PATHOLOGY ORDERAB LES Final Result [facility] [address] [place] [address] [facility] [address] [place] [address] from Last 3 Months or Most Recently Relevant to Health [place] [address] [facility] CHOICE PLUS [facility] CHO[facility] PLUS Advance Directives For more information, please contact: [phone] * Full Code (Latest Code Status on File) Date Activated Date Inactivated Comments 07/25/2024 12:34 PM 07/25/2024 7:26 PM * Full Code Date Activated Date Inactivated Comments 07/25/2024 12:34 PM 07/25/2024 12:34 PM * Full Code Date Activated Date Inactivated Comments 02/12/2023 11:43 AM 02/12/2023 7:51 PM * Full Code Date Activated Date Inactivated Comments 02/12/2023 11:43 AM 02/12/2023 11:43 AM Care Teams Injection Molding Technician Relationship Specialty Start Date End Date Renetta Valladares MD [address] [place] [address] [address] [place] [address] PCP - General Family Medicine 11/27/22 Mariaelena Magallon MD [address] [place] [address] Referring Physician Gynecology 07/18/24
[2025-05-31 22:36] LABS: Hematocrit 37.8 % (37.0-47.0); Hemoglobin 11.9 g/dL (12.0-15.0); Immature Granulocyte Percent A 0.3 % (0-0.5); Lymphocytes Absolute Auto 2.99 K/mm3 (0.9-3.2); Mean Corpuscular HGB Conc 31.5 g/dl (32-36); Mean Corpuscular Hemoglobin 28.5 pg (26-34); Mean Corpuscular Volume 90.6 fl (80-100); Nucleated Red Blood Cells Absolute Auto 0.000 K/mm3 (0.0-0.012); Nucleated Red Blood Cells Perc 0.0 % (0.0-0.2); Platelet Count Result 441 k/mm3 (150-375); Red Blood Count 4.17 M/mm3 (4.2-5.4); White Blood Count 9.9 K/mm3 (4.5-10.0)
[2025-05-31 22:40] LABS: Non Pathogenic Casts 0-2
[2025-05-31 22:48] LABS: Alanine Aminotransferase 19 U/L (6-35); Albumin Level 4.2 g/dL (3.5-5.1); Alkaline Phosphatase 61 U/L (38-126); Anion Gap 9 mmol/L (4-12); Aspartate Amino Transferase 29 U/L (14-36); Bilirubin,Total 0.2 mg/dL (0.2-1.3); Blood Urea Nitrogen 18 mg/dL (7-17); Calcium 9.1 mg/dL (8.4-10.2); Carbon Dioxide 23 mmol/L (22-30); Chloride 107 mmol/L (98-107); Estimated CRCL calculation 77 ml/min; Estimated Glomerular Filt Rate > 60; Glucose 96 mg/dL (65-110); Potassium 3.3 mmol/L (3.4-5.0); Sodium 139 mmol/L (137-145); Total Protein 8.0 g/dL (6.3-8.2)
--- OUTSIDE RECORDS SUMMARY | 2025-05-31 22:49 | XMS_ITS | Referral Summary ---
Author Organization [facility] Address [address] [place] [id number] Care Team Providers Care Premium Note Interest Calculator Clerk Name Role Phone Renetta Valladares MD Primary Care Provide r Mariaelena Magallon MD Unavailable [phone] Encounters Date Type Department Care Team Description 04/13/2025 8:22 AM CDT - 04/13/2025 11:05 AM CDT Emergency [facility] Emergency Department [address] [place] [address] Glendy Wilson MD Urinary retention (Primary Dx) Discharge Disposition: Discharge to home or self care 03/02/2025 1:30 PM CDT Office Visit [facility] [place] [address] [facility] [address] [place] [id number] Renetta Valladares MD Cough, unspecified type (Primary [...] 12/09/2024 Assessment & Plan (12/09/2024 4:36 PM WELDER FITTER ARC): New concern Likely arthritis flaring up Recommend [...] 2024 Assessment & Plan (2024 9:20 AM WELDER FITTER ARC): New concern Not at goal Poct dipstick showed small amounts of blood which is expected as she is finishing up her menstrual cycle but no sign of infection Will get urinalysis and microscopy Post void bladder scan 176ml left over Referral to urology Lump of skin of back 12/03/2023 Assessment & Plan (12/03/2023 4:32 PM WELDER FITTER ARC): Likely lipoma No opening to suggest a cyst and no discoloration Offered US for confirmation but she would like to hold off on this and continue to monitor for now Right hip pain 12/03/2023 Assessment & Plan (12/03/2023 4:34 PM WELDER FITTER ARC): Chronic No improvement Tylenol and heat Referral to physical therapy F/u if no improvement Migraine without aura and wi thout status migrainosus, not intractable 10/10/2023 Assessment & Plan (12/09/2024 12:31 PM WELDER FITTER ARC): chronic problem continue rizatriptan Follow-up p.r.n. Assessment & Plan (12/03/2023 9:04 AM WELDER FITTER ARC): chronic problem continue rizatriptan 10 mg-take 1 tablet by mouth as needed-may repeat in 2 hours if headache has not resolved, do not exceed more than 30 mg in a 24 hour. Patient educated on medication and side effects Continue to monitor Follow-up p.r.n. Assessment & Plan (10/10/2023 2:42 PM WELDER FITTER ARC): Acute on chronic problem-this has been in [...] 09/26/2023 Assessment & Plan (09/26/2023 12:51 PM WELDER FITTER ARC): Acute problem- this is a new problem [...] 09/26/2023 Assessment & Plan (12/03/2023 4:31 PM WELDER FITTER ARC): Chronic Stable Refer to physical therapy Can take the muscle relaxer as needed but will not do a refill F/u if no improvement with PT. Will consider referral to pain management at that time Assessment & Plan (10/10/2023 2:43 PM WELDER FITTER ARC): Acute problem- stable, but not at goal-patient [...] p.r.n. Assessment & Plan (09/26/2023 12:46 PM WELDER FITTER ARC): Acute problem- this is a new problem [...] 09/26/2023 Assessment & Plan (12/09/2024 3:26 PM WELDER FITTER ARC): chronic problem- stable Stable of lexapro Follow-up as scheduled-sooner p.r.n. Patient reiterated no suicidal thoughts at this time; take medication as directed; contact 911 and go to the ER if becomes suicidal; discussed side effects of medication with patient; encouraged healthy diet and exericise; encouraged patient to see a counselor Assessment & Plan (12/03/2023 9:01 AM WELDER FITTER ARC): Acute problem- improving Continue Escitalopram 5 mg- take 1 tablet daily Follow-up as scheduled-sooner p.r.n. Patient reiterated no suicidal thoughts at this time; take medication as directed; contact 911 and go to the ER if becomes suicidal; discussed side effects of medication with patient; encouraged healthy diet and exericise; encouraged patient to see a counselor Assessment & Plan (10/10/2023 2:43 PM WELDER FITTER ARC): Acute problem- improving Continue Escitalopram 5 mg- [...] counselor Assessment & Plan (09/26/2023 12:48 PM WELDER FITTER ARC): Acute problem- this is a new problem- [...] 04/27/2023 Assessment & Plan (09/26/2023 12:49 PM WELDER FITTER ARC): Acute problem- patient is following OBGYN Encouraged to follow-up with OBGYN as scheduled- sooner p.r.n. Continue current medications as directed by OBGYN Continue to monitor Chronic pain of right knee 11/27/2022 Assessment & Plan (11/27/2022 4:38 PM WELDER FITTER ARC): Xray showed arthritis No improvement with physical therapy or nsaids Mri of right knee and referral to ortho Encounter for wellness examination 11/26/2022 Assessment & Plan (12/09/2024 3:17 PM WELDER FITTER ARC): Labs pending Flu declines Colonoscopy up to date, due 2030 Pap smear follows with ob Mammo follows with ob F/u in 1 year for annual Assessment & Plan (12/03/2023 9:06 AM WELDER FITTER ARC): Ordered CBC, cmp, lipid, hgb a1c, urinalysis Flu declines Colonoscopy up to date Pap smear follows with ob Mammo follows with ob F/u in 1 year for annual Assessment & Plan (11/27/2022 4:00 PM WELDER FITTER ARC): Ordered CBC, cmp, lipid, hgb a1c, hep c, TSH w/ reflex to t4 Flu declines Colonoscopy referral placed Pap smear follows with ob Mammo follows with ob F/u in 1 year for annual Atopic rhinitis 04/04/2014 Skin benign neoplasm 02/26/2013 Assessment & Plan (11/27/2022 3:54 PM WELDER FITTER ARC): Stable Continue to monitor Herpes simplex virus (HSV) infection 02/26/2013 Assessment & Plan (11/27/2022 3:54 PM WELDER FITTER ARC): Stable / clinically quiescent. Will continue to [...] on file Legal Sex Female 7:29 PM WELDER FITTER ARC Gender Identity Female 02/03/2021 11:47 AM CDT [...] HPV MRNA E6/E7 Routine 01/28/2021 12:00 AM WELDER FITTER ARC from Last 3 Months or Most Recently [...] tendency for uric acid stone formation. Source: [facility] [place] Current Interpretive Data was last revised on [...] ORDERABLES Final Result [facility] ([place]) [address] [facility] Department of Laboratories [place], [place] [id number] * eGFR (04/13/2025 8:38 AM CDT) eGFR [...] MD LAB BLOOD ORDERABLE S Final Result [facility] ([place]) [address] [facility] [place] [address] * Differential, auto (04/13/2025 8:38 AM CDT) [...] BLOOD ORDERABLE S Final Result [facility] ([place]) [address] [facility] [place] [address] * CBC with auto differential (04/13/2025 8:38 [...] ([place]) MCHC 33.0 32.3 - 35.7 g/dL [facility] ([place]) RDW CV 12.5 11.1 - 14.9 % [facility] ([place]) RDW SD 42.1 35.7 - 48.1 fL [facility] ([place]) NRBC abs 0.00 0.00 - 0.01 K/cumm [facility] ([place]) Blood 04/13/2025 8:38 AM CDT 04/13/2025 8:41 AM CDT us Glendy Wilson MD LAB BLOOD ORDERABLE S Final Result [facility] ([place]) [address] [facility] [place] [address] * (ABNORMAL) Comprehensive metabolic panel (04/13/2025 8:38 AM CDT) Sodium 139 135 - 145 mmol/L Potassium, pl 3.7 3.3 - 4.9 mmol/L [facility] ([place]) Chloride 107 97 - 110 mmol/L [facility] ([place]) CO2 20(L) 22 - 32 mmol/L [facility] ([place]) Anion gap 12 2 - 15 mmol/L [facility] ([place]) BUN 12 6 - 25 mg/dL [facility] ([place]) Creatinine 0.75 0.60 - 1.10 [...] MD LAB BLOOD ORDERABLE S Final Result [facility] ([place]) [address] [facility] Department of Laboratories [place] [id number] * POCT respiratory syncytial virus (03/02/2025 1:18 PM CDT) RSV Rapid Ag negative Nasal 03/02/2025 1:18 PM CDT Renetta Valladares MD POINT OF CARE TEST OR DERABLES Final Result * POC Influenza A/B, COVID-19 antigen (03/02/2025 1:16 PM CDT) Influenza A Ag, POC Negative Negative [facility] Influenza B Ag, POC Negative Negative [facility] COVID-19 Ag POC Presumptive Negative Presumptive Negative, Invalid [facility] Nasal 03/02/2025 1:16 PM CDT Renetta Valladares MD POINT OF CARE TEST OR DERABLES Final Result [facility] [address] [place] [address] * Screening Mammogram Bilateral W Salomon (02/21/2025 [...] Dozier MD - 07/25/2024 12:56 PM CDT [facility] Patient Name: Martina Thayer Procedure Date: 07/25/2024 12:56 PM Date of : 1975 Admit Type: Outpatient Age: 49 Gender: Female Attending MD: Marian Dozier M.D. Room: [facility] 3 Note Status: Finalized Patient [...] Referring MD: Renetta Valladares M.D. Providers: Marian Dozire M.D. Impression: - Perianal skin tags found [...] procedure were verified by the physician, the dry press operator and the cryptographic technician in the endoscopy suite. Mental Status [...] scope was passed under direct vision. TheColonoscope [id number] was introduced through the anus and advanced [...] 12:56 PM Procedure Code(s): --- Professional --- 57986, Colonoscopy, flexible; diagnostic, including collection of specimen(s) by brushing or washing, when performed (separateprocedure) --- Technical --- 22112, Colonoscopy, flexible; diagnostic, including collection of specimen(s) by brushing or washing, when performed (separateprocedure) Diagnosis Code(s): --- Professional --- K64.4, Residual hemorrhoidal skin tags R93.3, Abnormal findings on diagnostic imaging of other parts of digestive tract --- Technical --- K64.4, Residual hemorrhoidal skin tags R93.3, Abnormal findings on diagnostic imaging of other parts of digestive tract CPT copyright 2020 [employer]. All rights reserved. The codes documented in this report are preliminary and upon die attaching machine tender reviewmay be revised to meet current compliance requirements. Recognized by the [employer] for promoting quality in endoscopy Marian Dozier MD ENDOSCOPY PROCEDURES Final Resul t * (ABNORMAL) Imaging Pap and HPV mRNA E6/E7 (01/28/2021 12:00 AM WELDER FITTER ARC) CLINICAL INFORMATION: [facility] Comment:Routine exam LMP [facility] Comment:UNKNOWN Previous Pap [facility] Comment:INFORMATION NOT PROV IDED Prev. Bx [facility] Comment:INFORMATION NOT PROV IDED SOURCE: [facility] Comment:Cervix, Endocervix Pap, specimen adequacy [facility] Comment: Satisfactory for evaluation. Endocervical/transformation zone component present. Age and/or menstrual status not provided Pap, general categorization (A) [facility] Comment:EPITHELIAL CELL ABNO RMALITY HPV interp (A) [facility] Comment: Atypical Squamous Cells of Undetermined [...] commonly, endometrial neoplasia. Clinical correlation is suggested. Hospital Clinic Assistant [facility]arsh[facility] Comment: VERA, CT(ASCP) CT screening location: [place] [address] [address] HARRIET Thomason [address] [facility] Comment: Cristiano [...] High Risk E6/E7 Not Detected Not Detected [facility] Comment: Methodology: Vegetable Cook-Mediated Amplification This assay detects E6/E7 viral messenger RNA (mRNA) from 14 high-risk HPV types (16,18,31,33,35,39,45,51,52,56,58,59,66,68). The analytical performance characteristics of this assay have been determined by [facility]. The modifications have not been cleared or approved by the FDA. This assay has been validated pursuant to the CLIA regulations and is used for clinical purposes. For additional information, please refer to http://education.[employer]Collect.[employer]/faq/WPF731g2 (This link if provided for information/ educational purposes only.) 01/28/2021 01/29/2021 6:3 9 AM WELDER FITTER ARC Narrative [facility] - 02/01/2021 1:01 PM CDT FASTING: UNKNOWN us Sara Colón MD LAB PATHOLOGY ORDERAB LES Final Result [place] [address] [address] [place] [id number] [facility] [address] [place] [address] from Last 3 Months or Most Recently Relevant to Health Maintenance Insurance [facility] CHOICE PLUS [facility] CHOICE PLUS Advance Directives For more information, please contact: [phone] * Full Code (Latest Code Status on File) Date Activated Date Inactivated Comments 07/25/2024 12:34 PM 07/25/2024 7:26 PM * Full Code Date Activated Date Inactivated Comments 07/25/2024 12:34 PM 07/25/2024 12:34 PM * Full Code Date Activated Date Inactivated Comments 02/12/2023 11:43 AM 02/12/2023 7:51 PM * Full Code Date Activated Date Inactivated Comments 02/12/2023 11:43 AM 02/12/2023 11:43 AM Care Teams Premium Note Interest Calculator Clerk Relationship Specialty Start Date End Date Renetta Valladares MD [address] [place] [address] [address] [place] [address] PCP - General Family Medicine 11/27/22 Mariaelena Magallon MD [address] [place] [address] Referring Physician Gynecology 07/18/24
--- OUTSIDE RECORDS SUMMARY | 2025-05-31 22:49 | XMS_ITS | Continuity of Care Document ---
Author Organization [facility] Address [address] [place] [address] Phone Care Team Providers Care Smooth And Burr Worker Composites Name Role Phone Judson Anguiano MD Unavailable Unavailable Allergies, Adverse Reactions, Alerts Substance Reaction Status Criticality No Known Allergies Active No Inform ation Medications Medication Instructions Dosage Effective Dates (start - stop) Status Comments valacyclovir 1 gram tablet - Active cyclobenzaprine 10 mg tablet TAKE 1 TABLET BY MOUTH 3 TIMES DAILY NEEDED FOR MUSCLE SPASMS FOR UP TO 14 DAYS. - Active methylprednisolone 4 mg tablets in a dose pack TAKE 6 TABLETS ON DAY 1 DIRECTED ON PACKAGE AND DECREASE BY 1 TAB EACH DAY FOR A TOTAL OF 6 DAYS - Active albuterol sulfate HFA 90 mcg/actuation aerosol inhaler 2 PUFF INHALED FOUR TIMES DAILY NEEDED FOR SHORTNESS OF BREATH OR WHEEZING - Active albuterol sulfate 2.5 mg/3 mL (0.083 %) solution for nebulization INHALE CONTENT OF 1 VIAL VIA NEBULIZER EVERY 6 HOURS - Active prednisone 10 mg tablet - Ac tive Procedures Procedure Date OFFICE/OUTPATIENT VISIT EST [facility] COMPL 4/MORE VIEWS OFFICE/OUTPATIENT VISIT NEW Advance Directives Directive Yes / No Effective Date File Name No Information Encounters Encounter Description Practice Location Reason(s) For Visit Diagnoses Date Provider Providers Copied on Encounter OFFICE/OUTPAT IENT VISIT EST [facility] , [address], [address], [place] tel:[phone] [facility] [place] knee (chief complaint) Primary osteoarthritis of right knee [address] [place], [place], [id number] . tel:[phone] Referring Provider: Lori [address], [place], [address] . tel:[phone] OFFICE/OUTPAT IENT VISIT NEW [facility] , [address] [place] [address], [place], [address], [place] tel:[phone] [facility] [place] knee (chief complaint) Pain in right kneeBody mass index [BMI] 32.0-32.9, adult [address] [place], [place], [id number] . tel:[phone] Referring Provider: Renetta jauregui, [address], [place], [address] . tel:[phone] Family History Family Member Type Diagnosis Age At Onset Problem Family history of Cancer, br east Problem Family history of Cancer, ki dney Problem Family history of Congenital heart disease Problem Family history of Cancer, un known type Problem Family history of Diabetes m ellitus Problem Family history of Hypertensi on Payers Payer name Insurance type Covered constitution party ID Authoriza titimothy(s) [facility] Choice/Choice Plus E2 OT [id number] Social History Type Description Quantity Date Captured [...] of the right knee on 12/25/2022 at [facility] in [place]. Functional Status Date Functional Assessmen t No [...] entered by Anne Marie Cm acting as Parts Manager for Judson Anguiano MD.The documentation recorded by the medical technicians accurately reflects the evaluation, management and related [...] was entered by Ivonne Dumont, acting as Parts Manager for Judson Anguiano MD.The documentation recorded by the medical technicians accurately reflects the evaluation, management and related [...]
--- OUTSIDE RECORDS SUMMARY | 2025-05-31 22:50 | XMS_ITS | Clinical Summary ---
Author Organization [facility] Address [address] [place] [address] Phone Care Team Providers Care Bone Grinder Name Role Phone Milan Ledesma MD Unavailable [phone] Renetta Valladares MD Primary Care Provide r Allergies Active Allergy Reactions Criticality Noted Date Comments Clarithromycin Nausea Molds & Smuts Shortness of Breath,Runny Nose,Other (see Comments) 03/19/2018 Sinus congestion, headache , itchy watery eyes Medications Fexofenadine HCl (AIDA PO) Take by mouth. 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
--- OUTSIDE RECORDS SUMMARY | 2025-05-31 22:50 | XMS_ITS | Clinical Summary ---
Author Organization [facility] Address [address] [place] [address] Care Team Providers Care Director Translation Name Role Phone Renetta Valladares MD Primary Care Provide r Mariaelena Magallon MD Unavailable [phone] Allergies Active Allergy Reactions Criticality Noted Date [...] 12/09/2024 Assessment & Plan (12/09/2024 4:36 PM [employer]ER): New concern Likely arthritis flaring up Recommend [...] 2024 Assessment & Plan (2024 9:20 AM [employer]SEAMER): New concern Not at goal Poct dipstick showed small amounts of blood which is expected as she is finishing up her menstrual cycle but no sign of infection Will get urinalysis and microscopy Post void bladder scan 176ml left over Referral to urology Lump of skin of back 12/03/2023 Assessment & Plan (12/03/2023 4:32 PM [employer]): Likely lipoma No opening to suggest a cyst and no discoloration Offered US for confirmation but she would like to hold off on this and continue to monitor for now Right hip pain 12/03/2023 Assessment & Plan (12/03/2023 4:34 PM [employer]): Chronic No improvement Tylenol and heat Referral to physical therapy F/u if no improvement Migraine without aura and wi thout status migrainosus, not intractable 10/10/2023 Assessment & Plan (12/09/2024 12:31 PM [employer]ER): chronic problem continue rizatriptan Follow-up p.r.n. Assessment & Plan (12/03/2023 9:04 AM [employer]ER): chronic problem continue rizatriptan 10 mg-take 1 tablet by mouth as needed-may repeat in 2 hours if headache has not resolved, do not exceed more than 30 mg in a 24 hour. Patient educated on medication and side effects Continue to monitor Follow-up p.r.n. Assessment & Plan (10/10/2023 2:42 PM [employer]ER): Acute on chronic problem-this has been in [...] 09/26/2023 Assessment & Plan (09/26/2023 12:51 PM [employer]ER): Acute problem- this is a new problem [...] 09/26/2023 Assessment & Plan (12/03/2023 4:31 PM [employer]): Chronic Stable Refer to physical therapy Can take the muscle relaxer as needed but will not do a refill F/u if no improvement with PT. Will consider referral to pain management at that time Assessment & Plan (10/10/2023 2:43 PM [employer]): Acute problem- stable, but not at goal-patient [...] p.r.n. Assessment & Plan (09/26/2023 12:46 PM [employer]ER): Acute problem- this is a new problem [...] 09/26/2023 Assessment & Plan (12/09/2024 3:26 PM [employer]): chronic problem- stable Stable of lexapro Follow-up as scheduled-sooner p.r.n. Patient reiterated no suicidal thoughts at this time; take medication as directed; contact 911 and go to the ER if becomes suicidal; discussed side effects of medication with patient; encouraged healthy diet and exericise; encouraged patient to see a counselor Assessment & Plan (12/03/2023 9:01 AM [employer]): Acute problem- improving Continue Escitalopram 5 mg- take 1 tablet daily Follow-up as scheduled-sooner p.r.n. Patient reiterated no suicidal thoughts at this time; take medication as directed; contact 911 and go to the ER if becomes suicidal; discussed side effects of medication with patient; encouraged healthy diet and exericise; encouraged patient to see a counselor Assessment & Plan (10/10/2023 2:43 PM [employer]ER): Acute problem- improving Continue Escitalopram 5 mg- [...] counselor Assessment & Plan (09/26/2023 12:48 PM [employer]AMER): Acute problem- this is a new problem- [...] 04/27/2023 Assessment & Plan (09/26/2023 12:49 PM [employer]ER): Acute problem- patient is following OBGYN Encouraged to follow-up with OBGYN as scheduled- sooner p.r.n. Continue current medications as directed by OBGYN Continue to monitor Chronic pain of right knee 11/27/2022 Assessment & Plan (11/27/2022 4:38 PM [employer]): Xray showed arthritis No improvement with physical therapy or nsaids Mri of right knee and referral to ortho Encounter for wellness examination 11/26/2022 Assessment & Plan (12/09/2024 3:17 PM [employer]ER): Labs pending Flu declines Colonoscopy up to date, due 2030 Pap smear follows with ob Mammo follows with ob F/u in 1 year for annual Assessment & Plan (12/03/2023 9:06 AM [employer]ER): Ordered CBC, cmp, lipid, hgb a1c, urinalysis Flu declines Colonoscopy up to date Pap smear follows with ob Mammo follows with ob F/u in 1 year for annual Assessment & Plan (11/27/2022 4:00 PM [employer]ER): Ordered CBC, cmp, lipid, hgb a1c, hep c, TSH w/ reflex to t4 Flu declines Colonoscopy referral placed Pap smear follows with ob Mammo follows with ob F/u in 1 year for annual Atopic rhinitis 04/04/2014 Skin benign neoplasm 02/26/2013 Assessment & Plan (11/27/2022 3:54 PM [employer]ER): Stable Continue to monitor Herpes simplex virus (HSV) infection 02/26/2013 Assessment & Plan (11/27/2022 3:54 PM [employer]ER): Stable / clinically quiescent. Will continue to [...] CDT - 04/13/2025 11:05 AM CDT Emergency 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 Source: [employer] Current Interpretive Data was last revised on [...] - GENERAL ORDERABLES Final Result [facility] ([place]) 1 [facility] [place] [address] * eGFR (04/13/2025 8:38 AM CDT) eGFR [...] S Final Result [facility] ([place]) 1 [facility] [place] [address] * Differential, auto (04/13/2025 8:38 AM CDT) Neutrophil abs 3.07 1.50 - 6.50 K/cumm Imm gran abs 0.01 0.00 - 0.10 K/cumm [facility] ([place]) Lymphocyte abs 2.75 0.80 - 3.30 K/cumm [...] BLOOD ORDERABLE S Final Result [facility] ([place]) 1 [facility] [place] [address] * CBC with auto differential (04/13/2025 8:38 AM CDT) Pathologist [facility] WBC 6.65 3.80 - 9.90 K/cumm Hgb [...] RDW SD 42.1 35.7 - 48.1 fL [facility] ([place] NRBC abs 0.00 0.00 - 0.01 K/cumm [facility] ([place]) Blood 04/13/2025 8:38 AM CDT 04/13/2025 8:41 AM CDT us Glendy Wilson MD LAB BLOOD ORDERABLE S Final Result [facility] ([place] 1 [facility] [place] [address] * (ABNORMAL) Comprehensive metabolic panel (04/13/2025 8:38 AM CDT) [facility] Sodium 139 135 - 145 mmol/L Potassium, [...] S Final Result [facility] ([place]) 1 [facility] [place], [place] [id number] * POCT respiratory syncytial virus (03/02/2025 1:18 PM CDT) RSV Rapid Ag negative Nasal 03/02/2025 1:18 PM CDT Renetta Valladares MD POINT OF CARE TEST OR DERABLES Final Result * POC Influenza A/B, COVID-19 antigen (03/02/2025 1:16 PM CDT) Influenza A Ag, POC Negative Negative [facility] Influenza B Ag, POC Negative Negative [facility] COVID-19 Ag POC Presumptive Negative Presumptive Negative, Invalid [facility] Nasal 03/02/2025 1:16 PM CDT Renetta Valladares MD POINT OF CARE TEST OR DERABLES Final Result [facility] PCP [facility] [address] [facility] [address] [place] [address] * Screening Mammogram Bilateral W Salomon (02/21/2025 [...] Yixi, MD - 07/25/2024 12:56 PM CDT [facility] Patient Name: Martina Thayer Procedure Date: 07/25/2024 12:56 PM Date of : 1975 Admit Type: Outpatient Age: 49 Gender: Female Attending MD: Marian Dozier M.D. Room: [facility] ENDOSCOPY ROOM 3 Note Status: Finalized [...] procedure were verified by the physician, the blast furnace checker and the repair technician in the endoscopy suite. Mental Status [...] scope was passed under direct vision. TheColonoscope [id number] was introduced through the anus and advanced [...] 12:56 PM Procedure Code(s): --- Professional --- 00887, Colonoscopy, flexible; diagnostic, including collection of specimen(s) by brushing or washing, when performed (separateprocedure) --- Technical --- 85227, Colonoscopy, flexible; diagnostic, including collection of specimen(s) by brushing or washing, when performed (separateprocedure) Diagnosis Code(s): --- Professional --- K64.4, Residual hemorrhoidal skin tags R93.3, Abnormal findings on diagnostic imaging of other parts of digestive tract --- Technical --- K64.4, Residual hemorrhoidal skin tags R93.3, Abnormal findings on diagnostic imaging of other parts of digestive tract CPT copyright 2020 [employer]. All rights reserved. The codes documented in this report are preliminary and upon early childhood worker reviewmay be revised to meet current compliance requirements. Recognized by the [employer] for promoting quality in endoscopy us Marian Dozier MD ENDOSCOPY PROCEDURES Final Resul t * (ABNORMAL) Imaging Pap and HPV mRNA E6/E7 (01/28/2021 12:00 AM [employer] OUTSEAMER) CLINICAL INFORMATION: [employer] [facility] Comment:Routine exam LMP [employer] [facility] Comment:UNKNOWN Previous Pap [facility] Comment:INFORMATION NOT PROV IDED Prev. Bx [facility] Comment:INFORMATION NOT PROV IDED SOURCE: [facility] Comment:Cervix, Endocervix Pap, specimen adequacy [facility] Comment: Satisfactory for evaluation. Endocervical/transformation zone component present. Age and/or menstrual status not provided Pap, general categorization (A) [facility] Comment:EPITHELIAL CELL ABNO RMALITY HPV interp (A) [facility] Comment: Atypical Squamous Cells of Undetermined Significance (ASC-US) Endometrial Cells present in a woman 45 years of age or older. COMMENTS [facility] Comment: This Pap test has been [...] commonly, endometrial neoplasia. Clinical correlation is suggested. Electronic Types[employer] Machine Operator [facility] Comment: [place], [place](ASCP) CT screening location: [place] [address] [place] [address] Pathologist [facility] Comment: Cristiano Romo M.D., Board Certified in Anatomic Pathology and Cytopathology. (electronic signature) Comment [facility] Comment: EXPLANATORY NOTE: The Pap is [...] High Risk E6/E7 Not Detected Not Detected [facility] [employer] [facility] Comment: Methodology: Administrator Of Home Health-Mediated Amplification This assay detects E6/E7 viral messenger RNA (mRNA) from 14 high-risk HPV types (16,18,31,33,35,39,45,51,52,56,58,59,66,68). The analytical performance characteristics of this assay have been determined by [employer]. The modifications have not been cleared or approved by the FDA. This assay has been validated pursuant to the CLIA regulations and is used for clinical purposes. For additional information, please refer to http://education.[employer]/faq/SDS043v3 (This link if provided for information/ educational purposes only.) 01/28/2021 01/29/2021 6:3 9 AM [employer]ER Narrative [facility] - 02/01/2021 1:01 PM CDT FASTING: UNKNOWN Sara Colón MD LAB PATHOLOGY ORDERAB LES Final Result [facility] [address] [place] [address] [facility] [address] [place] [address] from Last 3 Months or Most Recently Relevant [place] [address] [facility] Advance Directives For more information, please contact: [phone] * Full Code (Latest Code Status on File) Date Activated Date Inactivated Comments 07/25/2024 12:34 PM 07/25/2024 7:26 PM * Full Code Date Activated Date Inactivated Comments 07/25/2024 12:34 PM 07/25/2024 12:34 PM * Full Code Date Activated Date Inactivated Comments 02/12/2023 11:43 AM 02/12/2023 7:51 PM * Full Code Date Activated Date Inactivated Comments 02/12/2023 11:43 AM 02/12/2023 11:43 AM Care Teams Director Translation Relationship Specialty Start Date End Date Renetta Valladares MD [address] [place] [address] [address] [place] [address] PCP - General Family Medicine 11/27/22 Mariaelena Magallon MD [address] [place] [address] Referring Physician Gynecology 07/18/24
[2025-05-31 22:52] LABS: Add Urine Microscopic? YES; Appearance Urine Cloudy (Clear); Glucose Urine UA Negative (Negative); Leukocyte Esterase Ur 3+ LEU/UL (Negative); Nitrate Urine Negative (Negative); Specific Grav Ur 1.009 (1.001-1.035)
[2025-05-31 23:02] LABS: INR 1.1; Partial Thromboplastin Time 25.8 Seconds (22.3-36.8); Prothrombin Time 14.0 Seconds (11.1-14.7)
--- NOTE | 2025-05-31 23:02 | ED.FEMALEGU ---
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 <Sara Ledesma PA-C - Last Filed: 06/01/25 01:25> Stated complaint: Vaginal bleeding, mass coming out <Sara Ledesma PA-C - Last Filed: 06/01/25 01:25> Time Seen by Provider: 05/31/25 22:16 <Sara Ledesma PA-C - Last Filed: 06/01/25 01:25> Source: patient and old records reviewed <Sara Ledesma PA-C - Last Filed: 06/01/25 01:25> Mode of arrival: ambulatory <Sara Ledesma PA-C - Last Filed: 06/01/25 01:25> Limitations: no limitations <Sara Ledesma PA-C - Last Filed: 06/01/25 01:25> History of Present Illness HPI Narrative: Patient is a 50-year-old female, with past medical history of fibroids status post myomectomy/D&C, who presents the ED with report of vaginal bleeding. Patient reports she has had irregular and heavy menstrual cycles over the past few months. History of fibroids. Sees Dr. Magallon. Was started on Myfembree 40 by obgyn in middle of April. Reports she has had fairly persistent bleeding over the past 43 days. Reports intermittent cramping throughout lower abdomen, passage of clots. Reports today, she noticed tissue coming from her vagina. Prompted here for further evaluation. Denies fevers, anticoagulation. Has had issues with urinary retention intermittently over the past few months, had evaluation by Urology which was normal. <Sara Ledesma PA-C - Last Filed: 06/01/25 01:25> Related Data Home medications: Home Medications ?Medication ?Instructions ?Recorded ?Confirmed ?Last Taken ?Type escitalopram oxalate 5 mg tablet 5 mg PO HS 03/24/24 03/24/24 Unknown History multivitamin 1 tablet PO DAILY 03/24/24 03/31/24 03/27/24 History omega 1-ukr-jxt-fish oil 1,200 mg 1 cap PO DAILY 03/24/24 03/31/24 03/27/24 History (144 mg-216 mg) capsule (Fish Oil) vitamin C 90 mg-zinc gluconate 15 1 angie PO DAILY 03/24/24 03/31/24 03/27/24 History mg-herbal complex no. 325 lozenges <Sara Ledesma PA-C - Last Filed: 06/01/25 01:25> Allergies/Adverse reactions: Allergies Allergy/AdvReac Type Severity Reaction Status Date / Time No Known Allergies Allergy Verified 03/31/24 10:48 <Sara Ledesma PA-C - Last Filed: 06/01/25 01:25> Review of Systems Review of Systems: All systems reviewed & are unremarkable except as noted in HPI. <Sara Ledesma PA-C - Last Filed: 06/01/25 01:25> All systems reviewed & are unremarkable except as noted in HPI and below <Sara Ledesma PA-C - Last Filed: 06/01/25 01:25> [facility] Past Medical History Medical History: Medical History (normal spontaneous vaginal delivery) x3 <Sara Ledesma PA-C - Last Filed: 06/01/25 01:25> Surgical History Surgical History: Surgical History H/O dilation and curettage 1996 for spontaneous H/O breast biopsy Bilateral benign <Sara Ledesma PA-C - Last Filed: 06/01/25 01:25> Social History Social History: Social History Smoking status: Never smoker Alcohol intake: current Alcohol use details: social Substance use: never Living arrangements: with family Gender identity (if verbalized by the patient): Female Spiritual care concerns: No <Sara Ledesma PA-C - Last Filed: 06/01/25 01:25> Exam Narrative: GENERAL: Well appearing, well-nourished, non-toxic, in no acute distress. HEAD: Normocephalic, atraumatic. RESPIRATORY: Airway patent, respirations nonlabored. Clear to auscultation bilaterally, no rales, rhonchi, wheezing. CARDIOVASCULAR: Regular rate and rhythm without murmurs, rubs, or gallops. ABDOMINAL: Soft, minimal tenderness throughout lower abdomen, nondistended. Normoactive BS. PELVIC: Normal external genitalia. Large elongated tissue material extending the entirety of vaginal vault. Tissue is attached, unclear if attached to vaginal wall or cervix. Some vascularity noted of tissue material. Very small amount of dark red blood in vaginal vault. MUSCULOSKELETAL: Moves all extremities. No gross deformities. SKIN: Warm, dry, normal color. NEURO: A&O X3. Speech clear. No ataxic movements. PSYCHIATRIC: Appropriate mood and affect. Normal interaction. <Sara Ledesma PA-C - Last Filed: 06/01/25 01:25> Course FOOD PRODUCTION MACHINE OPERATOR/PA Physician Supervision For this patient encounter, I reviewed the FOOD PRODUCTION MACHINE OPERATOR or PA documentation, treatment plan, and medical decision making and had [id number] time with this patient. I performed all aspects of the MDM as documented. <Jeromy Everett MD - Last Filed: 06/01/25 07:07> Vital Signs Vital signs: Vital Signs Temperature 97.8 F 05/31/25 20:35 Pulse Rate 66 05/31/25 20:35 Respiratory Rate 18 05/31/25 20:35 Blood Pressure 115/61 05/31/25 20:35 Pulse Oximetry 100 05/31/25 20:35 Oxygen Delivery Room Air 05/31/25 20:35 Temperature 97.8 F 05/31/25 20:35 Pulse Rate 66 06/01/25 00:00 Respiratory Rate 14 06/01/25 00:00 Blood Pressure 144/69 H 05/31/25 23:46 Pulse Oximetry 100 06/01/25 00:00 Oxygen Delivery Room Air 05/31/25 20:35 <Sara Ledesma PA-C - Last Filed: 06/01/25 01:25> Vital Signs Temperature 97.8 F 05/31/25 20:35 Pulse Rate 66 05/31/25 20:35 Respiratory Rate 18 05/31/25 20:35 Blood Pressure 115/61 05/31/25 20:35 Pulse Oximetry 100 05/31/25 20:35 Oxygen Delivery Room Air 05/31/25 20:35 Temperature 97.8 F 05/31/25 20:35 Pulse Rate 66 06/01/25 00:00 Respiratory Rate 14 06/01/25 00:00 Blood Pressure 144/69 H 05/31/25 23:46 Pulse Oximetry 100 06/01/25 00:00 Oxygen Delivery Room Air 05/31/25 20:35 <Jeromy Everett MD - Last Filed: 06/01/25 07:07> MDM - Female Genitourinary MDM Narrative Medical decision making narrative: Patient presented to ED with a long history of abnormal vaginal bleeding with tissue coming out of vagina today. Vital signs stable. Hemodynamically stable. Cbc with stable H&H. Hemoglobin 11.9. Potassium was slightly low at 3.3. Replaced orally. UA with possible infection, lots of blood, 51-100 WBC. Sent for culture. Will treat. Urine was negative. Pelvic exam with tissue like material versus clot in vaginal vault, unclear where this is attached to. Attempted to gently manipulate/pull on material with ring forceps, but it did not easily detach. Do not want to forcibly pull and potentially cause further damage/bleeding. Discussed case with Dr. Rafaela Rose OBGYN nuclear weapons specialist for Dr. Magallon, advised possible fibroid delivering through cervix. Advised close follow-up with Dr. Magallon for further eval. Discussed these recommendations with patient. She is in agreement with plan. Advised to call office tomorrow. Advised to continue monitoring bleeding. Discussed strict return precautions. Patient in agreement plan. Discharged in stable condition. <Sara Ledesma PA-C - Last Filed: 06/01/25 01:25> Medical Records Attestation: I reviewed the patient's medical records. <Sara Ledesma PA-C - Last Filed: 06/01/25 01:25> Lab Data Attestation: I reviewed the patient's lab results. <DELFINA Garcia Last Filed: 06/01/25 01:25> Result diagrams: 05/31/25 22:26 05/31/25 22:26 <DELFINA Garcia Last Filed: 06/01/25 01:25> Labs: Lab Results 05/31/25 05/31/25 Range/Units 22:25 22:26 WBC 9.9 (4.5-10.0) K/mm3 RBC 4.17 L (4.2-5.4) M/mm3 Hgb 11.9 L (12.0-15.0) g/dL Hct 37.8 (37.0-47.0) % MCV 90.6 (80-100) fl MCH 28.5 (26-34) pg MCHC 31.5 L (32-36) g/dl RDW 12.0 (11.5-14.5) % Plt Count 441 H (150-375) k/mm3 MPV 9.3 (7.4-10.4) fl Immature Gran % (Auto) 0.3 (0-0.5) % Neut % (Auto) 57.4 (45.5-73.1) % Lymph % (Auto) 30.1 (18.3-44.2) % [place] % (Auto) 8.1 (2.6-8.5) % Eos % (Auto) 3.6 (0-4.4) % Baso % (Auto) 0.5 (0.2-1.2) % Lymph # (Auto) 2.99 (0.9-3.2) K/mm3 [place] # (Auto) 0.8 H (0.1-0.6) K/mm3 Eos # (Auto) 0.4 H (0-0.3) K/mm3 Baso # (Auto) 0.1 (0.0-0.1) K/mm3 Abs Immat Gran (auto) 0.03 (0.00-0.031) K/mm3 Absolute Neuts (auto) 5.7 (1.3-6.7) K/mm3 Absolute Nucleated RBC 0.000 (0.0-0.012) K/mm3 Nucleated RBC % 0.0 (0.0-0.2) % PT 14.0 (11.1-14.7) Seconds INR 1.1 APTT 25.8 (22.3-36.8) Seconds Sodium 139 (137-145) mmol/L Potassium 3.3 L (3.4-5.0) mmol/L Chloride 107 (98-107) mmol/L Carbon Dioxide 23 (22-30) mmol/L Anion Gap 9 (4-12) mmol/L BUN 18 H (7-17) mg/dL Creatinine 0.82 (0.7-1.0) mg/dL Estim Creat Clear Calc 77 ml/min Estimated GFR > 60 (59 - ) Glucose 96 (65-110) mg/dL Calcium 9.1 (8.4-10.2) mg/dL Total Bilirubin 0.2 (0.2-1.3) mg/dL AST 29 (14-36) U/L ALT 19 (6-35) U/L Alkaline Phosphatase 61 (38-126) U/L Total Protein 8.0 (6.3-8.2) g/dL Albumin 4.2 (3.5-5.1) g/dL Urine Color [place] H (Yellow) Urine Appearance Cloudy H (Clear) Urine pH 5.0 (5.0-9.0) Ur Specific [place] 1.009 (1.001-1.035) Urine Protein 1+ H (Negative) mg/dL Urine Glucose (UA) Negative (Negative) mg/dL Urine Ketones Negative (Negative) mg/dL Ur Blood (Man) 3+ H (Negative) Urine Nitrate Negative (Negative) Urine Bilirubin Negative (Negative) Urine Urobilinogen 0.2 (<2.0) mg/dL Leukocyte Esterase Rfl 3+ H (Negative) GIFTY/UL Urine RBC >100 H (0-2) /hpf Urine WBC 51-100 H (0-3) /hpf Ur Squamous Epith Cells Occasional (Few) /hpf Urine Bacteria Rare /hpf Urine Casts 0-2 Urine Test Negative <Sara Ledesma PA-C - Last Filed: 06/01/25 01:25> Lab Results 05/31/25 05/31/25 Range/Units 22:25 22:26 WBC 9.9 (4.5-10.0) K/mm3 RBC 4.17 L (4.2-5.4) M/mm3 Hgb 11.9 L (12.0-15.0) g/dL Hct 37.8 (37.0-47.0) % MCV 90.6 (80-100) fl MCH 28.5 (26-34) pg MCHC 31.5 L (32-36) g/dl RDW 12.0 (11.5-14.5) % Plt Count 441 H (150-375) k/mm3 MPV 9.3 (7.4-10.4) fl Immature Gran % (Auto) 0.3 (0-0.5) % Neut % (Auto) 57.4 (45.5-73.1) % Lymph % (Auto) 30.1 (18.3-44.2) % [place] % (Auto) 8.1 (2.6-8.5) % Eos % (Auto) 3.6 (0-4.4) % Baso % (Auto) 0.5 (0.2-1.2) % Lymph # (Auto) 2.99 (0.9-3.2) K/mm3 [place] # (Auto) 0.8 H (0.1-0.6) K/mm3 Eos # (Auto) 0.4 H (0-0.3) K/mm3 Baso # (Auto) 0.1 (0.0-0.1) K/mm3 Abs Immat Gran (auto) 0.03 (0.00-0.031) K/mm3 Absolute Neuts (auto) 5.7 (1.3-6.7) K/mm3 Absolute Nucleated RBC 0.000 (0.0-0.012) K/mm3 Nucleated RBC % 0.0 (0.0-0.2) % PT 14.0 (11.1-14.7) Seconds INR 1.1 APTT 25.8 (22.3-36.8) Seconds Sodium 139 (137-145) mmol/L Potassium 3.3 L (3.4-5.0) mmol/L Chloride 107 (98-107) mmol/L Carbon Dioxide 23 (22-30) mmol/L Anion Gap 9 (4-12) mmol/L BUN 18 H (7-17) mg/dL Creatinine 0.82 (0.7-1.0) mg/dL Estim Creat Clear Calc 77 ml/min Estimated GFR > 60 (59 - ) Glucose 96 (65-110) mg/dL Calcium 9.1 (8.4-10.2) mg/dL Total Bilirubin 0.2 (0.2-1.3) mg/dL AST 29 (14-36) U/L ALT 19 (6-35) U/L Alkaline Phosphatase 61 (38-126) U/L Total Protein 8.0 (6.3-8.2) g/dL Albumin 4.2 (3.5-5.1) g/dL Urine Color [place] H (Yellow) Urine Appearance Cloudy H (Clear) Urine pH 5.0 (5.0-9.0) Ur Specific [place] 1.009 (1.001-1.035) Urine Protein 1+ H (Negative) mg/dL Urine Glucose (UA) Negative (Negative) mg/dL Urine Ketones Negative (Negative) mg/dL Ur Blood (Man) 3+ H (Negative) Urine Nitrate Negative (Negative) Urine Bilirubin Negative (Negative) Urine Urobilinogen 0.2 (<2.0) mg/dL Leukocyte Esterase Rfl 3+ H (Negative) GIFTY/UL Urine RBC >100 H (0-2) /hpf Urine WBC 51-100 H (0-3) /hpf Ur Squamous Epith Cells Occasional (Few) /hpf Urine Bacteria Rare /hpf Urine Casts 0-2 Urine Test Negative <Jeromy Everett MD - Last Filed: 06/01/25 07:07> Discharge Plan Discharge Clinical Impression: Dysfunctional uterine bleeding, Fibroid, Abnormal finding on urinalysis <DELFINA Garcia Last Filed: 06/01/25 01:25> Patient Disposition: Home <Sara Ledesma PA-C - Last Filed: 06/01/25 01:25> Condition: Stable <DELFINA Garcia Last Filed: 06/01/25 01:25> Instructions: Antibiotic Form, Abnormal (Dysfunctional) Uterine Bleeding (ED), Uterine Fibroids (ED) <DELFINA Garcia Last Filed: 06/01/25 01:25> Additional Instructions: Follow-up with Dr. Magallon for further evaluation of abnormal vaginal tissue/possible fibroid. Call office in the morning to make appointment. Continue to monitor bleeding. Return to the ED for new or worsening concerns. Your urine showed signs of possible infection. Take antibiotics as prescribed. <Sara Ledesma PA-C - Last Filed: 06/01/25 01:25> Patient Language: Malian <Sara Ledesma PA-C - Last Filed: 06/01/25 01:25> Prescriptions: New cephalexin 500 mg capsule 500 mg PO Q6H 7 Days Qty: 28 0RF No Action multivitamin Tablet 1 tablet PO DAILY escitalopram oxalate 5 mg tablet 5 mg PO HS omega 7-uzp-flj-fish oil [Fish Oil] 1,200 (144-216) mg Capsule 1 cap PO DAILY Elderberry Zinc Vit C 90-15 mg Lozenge 1 angie PO DAILY <Sara Ledesma PA-C - Last Filed: 06/01/25 01:25> Follow-up/Referrals: Blaine,MD Renetta [Primary Care Provider] - Mariaelena Magallon MD [Physician] - (OBGYN) <Sara Ledesma PA-C - Last Filed: 06/01/25 01:25> Time of Disposition: 00:20 <Sara Ledesma PA-C - Last Filed: 06/01/25 01:25> 00:20 <Jeromy Everett MD - Last Filed: 06/01/25 07:07>
[2025-06-01] VITALS: PULSE 66; RESP 14; O2SAT 100
[2025-06-01 00:08] LABS: Pregnancy On Board Control Positive
[2025-06-01] MEDS: POTASSIUM CHLORIDE 20 MEQ ER TABLET PO (00:34)
== END 2025-06-01 00:40 | disposition home or self-care (01) ==
PROVIDERS: Emergency Medicine; Emergency Provider Physician Assistant; PCP Family Medicine
DX: N93.8 Other specified abnormal uterine and vaginal bleeding (principal); D25.9 Leiomyoma of uterus, unspecified; R82.90 Unspecified abnormal findings in urine
CPT/HCPCS: 36415; 80053; 81001; 81025; 85025; 85610; 85730; 87086; 99284; A9270